=== PATIENT | male | born 1950 | race Caucasian/White ===

== ENCOUNTER 2016-04-27 13:02 | Observation (INO) | payer MEDICARE ==
[~2016-04-27] VITALS: Ht 165.1 cm; Wt 71.8 kg
[2016-04-27] VITALS (9 sets, daily range): BP systolic 104–178; BP diastolic 62–83; PULSE 43–58; RESP 13–20; O2SAT 93–98
[~2016-04-27 13:02] MED LIST: ALIR75PE SQ; ASCO100089 PO; ASPI325T32 PO; CLOP75TA28 PO; LOPE2TAB32 PO; METF1000 PO; METO-272 PO; NITR12SP5 TL; TAMS0.4C98 PO
--- NOTE | 2016-04-27 13:21 | ED.REPORT ---
HPI-Chest Pain 40 and Over Date of Service Apr 27, 2016 ED Provider: Dr. Willard Carcamo M.D. A 65 year old male with a history of STEMI, TIA, CAD, diabetes type 2, hypertension, and dyslipidemia presents to the ED with chest pressure onset 0700. The pain woke him up but did not radiate and was similar to his previous MO. The patient also reports nasal congestion, diaphoresis, mild abdominal pain , and shortness of breath. He took Nitro x1 at onset which resolved his pain initially but it returned when he went to cardiac rehab. The patient was admitted to the hospital for two nights on 03/29/16 with acute chest pain and possible TIA. Nursing Notes Stated Complaint: CHEST PAIN Chief Complaint: Chest Pain Nursing Notes Reviewed: Yes Allergies: Coded Allergies: Sulfa (Sulfonamide Antibiotics) (Verified Allergy, Intermediate, 03/28/16) Flu Like, High FEver, Joint pain, muscle pain. diazepam (Unverified Allergy, Intermediate, 03/29/16) Makes pt aggressive, per pt adhesive tape (Verified Allergy, Mild, Rash,Itching,, 03/28/16) lactose (Verified Allergy, Unknown, 03/28/16) Lactose Scheduled Alirocumab (Praluent Pen) 75 Mg/Ml Pen.injctr 75 MG SQ q14 days Ascorbic Acid (Vitamin C) 1,000 Mg Tab.chew 1,000 MG PO DAILY Aspirin (Aspirin) 325 Mg Tablet 325 MG PO DAILY Clopidogrel (Clopidogrel) 75 Mg Tablet 75 MG PO DAILY Metformin (Glucophage) 1,000 Mg Tablet 1,000 MG PO BID Metoprolol Succinate ER (Metoprolol Succinate ER) 50 Mg Tab.er.24h 50 MG PO HS Tamsulosin (Flomax) 0.4 Mg Capsule 0.4 MG PO DAILY Scheduled PRN Loperamide (Loperamide) 2 Mg Tablet 4 MG PO DAILY PRN PRN For Diarrhea or Loose Stool Nitroglycerin (Nitrolingual) 12 Gm [place] 12 GM TL 1-2 sprays PRN PRN For Chest Pain General Time Seen by MD: 13:20 Chief Complaint Chest pain Hx Obtained From: Patient Arrived By: Walk-in Sudden in Onset?: Yes Onset Occurred: 5 - 8 hours ago Symptom Duration: Since onset Location: : Chest left Quality: Painful Severity: Current: Moderate Severity: Maximum: Moderate Associated with: Reports: Diaphoresis, Shortness of Breath, Denies: Fever Relieved by: Nitroglycerin at home x 1 Context Related History: Reports: Acute coronary syndrome, Diabetes mellitus, Hypertension Recent Healthcare: Recent hospitalization Similar Sx Previous: Yes Past Medical History Past Medical History Notes: Past Medical History STEMI TIA CAD Type 2 Diabetes Atherosclerotic peripheral vascular disease GERD dyslipidemia hypertension hiatal hernia posttraumatic seizures Past Surgical History Stent placement x3 Retrograde left heart catheterization (02/2016) Balloon angioplasty to the distal left anterior descending (02/2016) Reports: Appendectomy, Tonsillectomy Family History Maternal grandfather disabled by MO Maternal uncle with fatal MO Mother without known heart disease Smoking History Former Smoker (Quit again March 06, 2016) Social History Patient stopped smoking for 22 years then restarted in 01/2016 Alcohol Use: "Social" Drug Use: Denies drug use Ambulatory Status Independent Review of Systems Constitutional: Denies: Fever Respiratory: Reports: Shortness of breath Cardiovascular: Reports: Chest pain GI: Reports: Abdominal pain Skin: Reports Diaphoresis Complete sys rev & neg: except as marked. Ears / Nose / Throat: Reports: Nasal congestion Physical Exam Initial Vital Signs Vital Signs (First) Date Time Temp Pulse Resp B/P Pulse Ox O2 Delivery O2 Flow Rate FiO2 04/27/16 13:05 36.9 58 20 161/83 97 Room Air Initial VS: Reviewed Head / Eyes: Atraumatic, Normocephalic ENT: Conjunctiva normal, No scleral icterus Neck: Supple, Full range of motion Skin: Warm, Dry, No cyanosis Neurologic: Alert, Oriented, Nonfocal Psychiatric: Mood/affect normal, Behavior normal, Normal thought content General/Constitutional: Awake, Alert, No acute distress Respiratory / Chest: Breath sounds NL, Breath sounds = bilat, No respiratory distress Cardiovascular: Heart rate NL, Regular rhythm, Heart sounds NL Abdomen: Soft, Non-tender Interpretation & Diagnostics Lab Results Interpretation Result Diagram: 04/27/16 1325 04/27/16 1325 Test 04/27/16 13:25 White Blood Count 11.1th/mm3 (3.8-10.1) Red Blood Count 4.85mil/mm3 (4.40-5.80) Hemoglobin 16.1g/dL (13.8-17.2) Hematocrit 47.6% (41.0-50.0) Mean Corpuscular Volume 98.1fL (81-100) Mean Corpuscular Hemoglobin 33.2pg (27.0-35.0) Mean Corpuscular Hemoglobin Concent 33.8% (32.0-37.0) Red Cell Distribution Width 13.1% (12.3-15.4) Platelet Count 282bil/L (150-400) Neutrophils (%) (Auto) 66.4% (40-74) Lymphocytes (%) (Auto) 20.7% (14-46) Monocytes (%) (Auto) 9.7% (4-12) Eosinophils (%) (Auto) 2.5% (0-5) Basophils (%) (Auto) 0.4% (0-3) Sodium Level 140mEq/L (134-144) Potassium Level 4.8mEq/L (3.5-5.2) Chloride Level 101mEq/L (97-108) Carbon Dioxide Level 22mmol/L (18-29) Blood Urea Nitrogen 18mg/dL (8-27) Creatinine 0.95mg/dL (0.76-1.27) Estimat Glomerular Filtration Rate 84mL/min (>59) Glucose Level 134mg/dL (60-99) Calcium Level 9.8mg/dL (8.5-10.1) Magnesium Level 2.1mg/dL (1.6-2.6) Total Bilirubin 0.3mg/dL (0.0-1.2) Aspartate Amino Transf (AST/SGOT) 16U/L (0-50) Alanine Aminotransferase (ALT/SGPT) 14U/L (0-44) Alkaline Phosphatase 80U/L (25-160) Troponin T < 0.010ug/L (0.0-0.011) Total Protein 7.6g/dL (6.4-8.4) Albumin 4.3g/dL (3.4-5.0) ECG Interpretation ECG Interpretation: Sinus rhythm rate 60 Probable left atrial enlargement Inferior infarct, age indeterminant No change from 03/29 Time: 13:40 Interpreted by: ED physician X-Ray Chest Interpretation Chest Xray Interpretation: IMPRESSION: No acute disease Dictated by: Gary Randhawa M.D. on 04/27/2016 at 14:13 View: Portable, 1 view Interpretation / Wet Read by: Interpret - Radiologist Re-Eval/Medical Decision Source of Hx: Old records Time of Eval: 14:16 Patient Status: Condition improved Re-Evaluation/Progress Note: Discussed with patient x-ray and lab results, diagnosis, and plan for admit. Patient agrees with plan for care and all questions were addressed. Consultation : Referral / Consult Name: Stephany Genao MD Consulted With: Hospitalist Call Returned at: 14:35 Residence Counselor: Agrees with eval, Agrees with plan, Accepts admit Counseled Regarding: Diagnosis, Lab results, Need for admission Discharge & Departure Primary Impression: Chest pain Disposition: ADMITTED TO HOSPITAL Discharge Condition All VS Reviewed: Yes Condition: Stable Referrals: Janina Boyer (PCP) Josribmariella Attestation Portions of this note were transcribed by Dotty Kyle. I, Dr. Carcamo, personally performed the history, physical exam, and medical decision-making; I reviewed and confirmed the accuracy of the information in the transcribed note. Signed by: Brady Coelho, 04/27/2016, 14:59 copies to: Janina Boyer Kirk H MD Apr 27, 2016 13:21 DOTTY KYLE Apr 27, 2016 13:33
[2016-04-27] MEDS ORDERED: Heparin 25K Unit/500mL 0.45 NS 25,000 UNIT in IV Premix 1 EACH IV SCH ×2 (13:30→21:25)
[2016-04-27] MEDS ORDERED: Nitroglycerin 2% 1 Gm Ointment TOPICAL ONE ×2 (13:30→22:40)
[2016-04-27] MEDS ORDERED: MeTOProlol 1 mg/mL 5 mL Inj IVPUSH PRN (13:30)
[2016-04-27] MEDS ORDERED: Heparin 5,000 Unit/mL Inj IVPUSH PRN ×2 (13:30→21:25)
[2016-04-27 13:41] LABS: BASOPHILS % (AUTO) 0.4 % (0-3); EOSINOPHILS % (AUTO) 2.5 % (0-5); MONOCYTES % (AUTO) 9.7 % (4-12); Mean Corpuscular Hemoglobin 33.2 pg (27.0-35.0); Mean Corpuscular Volume 98.1 fL (81-100); NEUTROPHILS % (AUTO) 66.4 % (40-74); Platelet Count 282 bil/L (150-400)
[2016-04-27 14:11] LABS: TROPONIN T < 0.010 ug/L (0.0-0.011)
[2016-04-27 14:12] LABS: Magnesium 2.1 mg/dL (1.6-2.6)
--- NOTE | 2016-04-27 14:14 | DRSVH ---
PROCEDURE: X-RAY CHEST ONE VIEW, PORTABLE ([id number]) INDICATIONS: chest pain TECHNIQUE: One view of the chest was acquired. COMPARISON: [facility], CR, XR CHEST 1VW (PORTABLE), 03/28/2016, 20:11. FINDINGS: Surgical changes and devices: None. Lungs and pleura: No pleural effusions or pneumothorax. Lungs are clear. Mediastinum: Mediastinal contours appear normal. Heart size is normal. Bones and chest wall: No suspicious bony lesions. Overlying soft tissues appear unremarkable. IMPRESSION: No acute disease Dictated by: Gary Randhawa M.D. on 04/27/2016 at 14:13 Approved by: Gary Randhawa M.D. on 04/27/2016 at 14:13
[2016-04-27] MEDS ORDERED: Ondansetron 2 mg/mL 2 mL Inj IVPUSH PRN (15:10)
[2016-04-27] MEDS ORDERED: Alum-Mag Hydrox-Simeth 30 mL Suspension PO PRN (15:10)
--- NOTE | 2016-04-27 15:20 | PCM.HPMED ---
Subjective Date of Service Apr 27, 2016 Primary Provider: Admitting Physician: Stephany Genao MD Primary Care Physician: Janina Boyer Attending Physician: Stephany Genao MD Chief Complaint: [facility] History of present illness 65-year-old male, presented 2015 with acute on chronic angina, treated with LAD distal balloon angioplasties without stent, re- presented 2015 with abdominal pain/anginal equivalent during exertion self-limiting no better with nitroglycerin with, CT chest/abdomen without acute findings and anterior ST changes, evaluated by cardiology at that time recommended follow-up with primary printer's assistant Jose and consideration for isosorbide in the future. His [facility] appt is pending. TOday, He woke up with epigastric abdominal/ midsternal pressure, mildly improved w/ nitro, proceeded to go to his cardiac rehab, pressure worse, walked to ER instaed. no acid reflux/vomiting/spicy food last night. diarrhea is due to IBS. prior trigylcerides have been in the 500s. no EGD since hiatal hernia repair 20 years ago. In the ER, 178/68, 57, chest pain improved with nitroglycerin 3, then with morphine, metoprolol administered. heparin gtt started. Ongoing abdominal and chronic right lower back pain. no better w/ maalox Review of Systems - none of the following - F/C/sick contact / DAMON / lightheaded / dizziness / sob / cough / cp / / bleeding/bruising / leg swelling / change in voiding / rash Allergies to statins FAMILY HX pancreatitis w/o EtOH SOCIAL HX former smoker, social EtOH MEDICATIONS Scheduled Alirocumab (Praluent Pen) 75 Mg/Ml Pen.injctr 75 MG SQ q14 days Ascorbic Acid (Vitamin C) 1,000 Mg Tab.chew 1,000 MG PO DAILY Aspirin (Aspirin) 325 Mg Tablet 325 MG PO DAILY Clopidogrel (Clopidogrel) 75 Mg Tablet 75 MG PO DAILY Metformin (Glucophage) 1,000 Mg Tablet 1,000 MG PO BID Metoprolol Succinate ER (Metoprolol Succinate ER) 50 Mg Tab.er.24h 50 MG PO HS Tamsulosin (Flomax) 0.4 Mg Capsule 0.4 MG PO DAILY Scheduled PRN Loperamide (Loperamide) 2 Mg Tablet 4 MG PO DAILY PRN PRN For Diarrhea or Loose Stool Nitroglycerin (Nitrolingual) 12 Gm [place] 12 GM TL 1-2 sprays PRN PRN For Chest Pain Past Medical/Surgical HX Diabetes mellitus2 02/2016 A1c 7.2 GERD/hiatal hernia - repaired 20 years ago recurrence based on recent imaging studies/ small ventral hernia / radiographic chronic pancreatitis/radiographic liver fatty infiltration Left lower lobe lung nodules, recommendation for follow-up CT CAD/STEMI stenting/Chronic angina Echo 03/08/16 EF 75-80%, small area of akinesis at tip of inferior apex, mild-mod RV dilation, severe apical RV hypokinesis. Hypertension /Dyslipidemia- 03/07/2016 trig 203, LDL 61 HDL 36 /TIAs suspected- declined MRIs in past Posttraumatic Seizures, petit mal, migraines QUETA/CPAP BPH L4-L5 ruptured Appendectomy/eye surgery/tonsillectomy/left finger operation Polymorphic light reaction Allergies Coded Allergies: Sulfa (Sulfonamide Antibiotics) (Verified Allergy, Intermediate, 03/28/16) Flu Like, High FEver, Joint pain, muscle pain. diazepam (Unverified Allergy, Intermediate, 03/29/16) Makes pt aggressive, per pt adhesive tape (Verified Allergy, Mild, Rash,Itching,, 03/28/16) lactose (Verified Allergy, Unknown, 03/28/16) Lactose Rzsfqyq-Orq-Zfv Reductase Inhibitor (Verified Adverse Reaction, Severe, muscle/joint pain, 04/27/16) PMH Social History Hx Alcohol Use: Yes (1 q 6 mnths) Hx Substance Use: No Hx Tobacco Use: Yes Smoking Status: Former Smoker (Quit again March 06, 2016) Exam Vital Signs Vital Sign - Last Date Time Temp Pulse Resp B/P Pulse Ox O2 Delivery O2 Flow Rate FiO2 04/27/16 13:15 57 13 178/68 97 Room Air 04/27/16 13:05 36.9 Lab and Diagnostics Labs Exam on admission NAD A and O x 3 mood affect WNL NC/AT no icterus no injected eyes EOMI PERRL /no pharyngeal lesions/ no oral lesions / hearing intact Supple neck CTAB equal chest rise / no accessory muscle use / speaks in full sentences / no rrw RRR S1 S2 / no mrg / 2+ radial pulses Soft nd + BS no hepatosplenomegaly No edema no cyanosis no ecchymosis of lower extremities No rash / no jaundice RUBIO no tenderness to chest palpation moderate tenderness to epigastric palpation and upper abdominal palpation EKG 60SR flipped T inferior leads and right precordial leads LFT normal Troponin negative at 2 PM Chest x-ray negative acute findings CT CAP 03/28/2016 1. No aortic aneurysm or dissection. 2. Left lower lobe lung nodules. Recommend CT followup (please see below for recommendation). 3. Hepatic steatosis. 4. There is increased enhancement of the gallbladder wall. No gallstones. If there is clinical suspicion for gallbladder pathology, ultrasound is suggested for further evaluation. 5. Punctate calcifications in pancreas likely secondary to chronic pancreatitis. 6. A 1.9 cm left adrenal nodule. 7. A small hiatal hernia and a tiny fat containing ventral hernia. Result Diagram: 04/27/16 1325 04/27/16 1325 Assessment & Plan Active issues and reason for admission Recurrent chest/abdominal pain, chronic angina, last cardiac catheterization consistent with distal LAD balloon angioplasties in February 2016, admitted for ACS evaluation, history of acid reflux/hiatal hernia. -- Serial troponin, hold heparin drip - discussed w/ printer's assistant unless trop rises, continue his monoclonal antibody, pending bnp Radiographic chronic pancreatitis w/o gallstones 02/2016, prior transaminits 2015 and 03/2016, consider gastroenteritis though lacking vomiting, diarrhea attributed to IBS -- Pending lipase --NPO / IVF --stool cx pending then resume home loperamide Elevated TSH 2015 admission, pending repeat with T4 Chronic issues known prior to admission, present on admission LLL nodules 02/2016 Diabetes mellitus2 02/2016 A1c 7.2 GERD/hiatal hernia CAD/STEMI RCA stent/ Hypertension /Dyslipidemia/TIA suspected Posttraumatic Seizures, petit mal, migraines QUETA/CPAP BPH L4-L5 ruptured Diet NPO DVT prophylaxis hold heparin gtt, ambulatory Code full Disposition OBS status Assessment and plan were discussed with patient. Stephany Genao MD Apr 27, 2016 15:20
[2016-04-27] MEDS ORDERED: TERB250T4 PO (15:56)
--- NOTE | 2016-04-27 16:22 | NUR ---
Admit nurse: Pt declines flu shot, med rec completed, allergy sticker in place. Admit completed, heparin gtt stopped per hospitalist orders. Pt to remain NPO.
[2016-04-27] MEDS ORDERED: 0.9% Sodium Chloride 1,000 ML IV SCH (17:14)
--- NOTE | 2016-04-27 18:07 | NUR ---
admit pt arrived on unit from ED SL, RA complaining of 4/10 chest pressure more than pain but did not want anymore morphine.Nitro patch on right chest placed in ER. Pt is a&oX3. per tele SB 48-52 all other vs wnl. BG 94. PT was placed on NPO.
[2016-04-27 20:06] LABS: Creatine Kinase 29 U/L (21-232)
[2016-04-27 20:11] LABS: TROPONIN T < 0.010 ug/L (0.0-0.011)
[2016-04-27] MEDS: MeTOProlol XL 50 mg ER24 Tablet PO SCH (21:00)
[2016-04-27] MEDS ORDERED: Heparin 5,000 Unit/mL Inj IVPUSH ONE (21:25)
--- NOTE | 2016-04-27 22:06 | NUR ---
PT TO CT Pr left [facility] 3006 via hospital bed to CT @ 2205. quality assurance technician notified. Pt on 2L oxygen w/ portable tank. Pt saline locked.
--- NOTE | 2016-04-27 22:08 | NUR ---
CHEST PAIN, HEPARIN GTT Pt has had c/o continual chest pain, "4" out of 10 tolerable. Pt later c/o increased chest pain. EKG ordered. BP elevated, pulse bradycardic 40-50s. MD notified. MD reordered heparin gtt, and to Nitro tab and IV morphine. Nitro tab given, pt states no change, IV morphine 2 mg administered. Pt appeared comfortable for a few minutes, but c/o chest pain "8". Second dose of IV morphine 2mg administered. CT ordered, pt to be saline locked, heparin gtt not started yet. Heparin IV bolus of 5000 units has been given. MD came to see pt. Pt in CT currently. MD ordered to have pt transferred to second floor.
[2016-04-27] MEDS ORDERED: 0.9% Sodium Chloride 500 ML IV PRN (22:40)
[2016-04-27 23:28] LABS: APPEARANCE,URINE CLEAR (CLEAR,HAZY); COLOR,URINE YELLOW (YELLOW); OCCULT BLOOD,URINE NEGATIVE (NEGATIVE); PH,URINE 5.5 (5.0-8.0); UROBILINOGEN,URINE NORMAL (NORMAL)
[2016-04-27] MEDS: 0.9% Sodium Chloride 1,000 ML IV SCH (23:30)
--- NOTE | 2016-04-27 23:49 | NUR ---
PT TRANSFERRED TO ROOM [address] completed, pt taken to Room 2021 approx 2215. [facility] [place] brought pts medications from [facility] and pt belongings from Room 3006 to second floor. Report given to HARIKA Wagner.
[2016-04-28] VITALS (10 sets, daily range): BP systolic 106–182; BP diastolic 65–96; PULSE 40–56; RESP 16–18; O2SAT 94–96
[2016-04-28] MEDS ORDERED: Nitroglycerin 50 mg/250 mL D5W 50,000 MCG in IV Premix 1 EACH IV SCH (00:30)
[2016-04-28] MEDS: Sodium Chloride LOK Flush 10 mL Syringe IVFLUSH SCH ×3 (00:30→18:02)
[2016-04-28] MEDS: Pantoprazole 4 mg/mL 10 mL Inj IVPUSH SCH ×3 (02:19→18:00)
--- NOTE | 2016-04-28 04:07 | NUR ---
P) Chest pain Pt. c/o chest pain /, state he thinks it is a problem with his LAD as the symptoms are so similar. Lungs with slightly coarse breath sounds and scattered crackles in bases. Abdomen tender to very light palpation, peripheral pulses strong. Cardiac rhythm bradycardic in the 40's with some PVC's, no acute changes noted. I) Started nitro gtt. at 5mcg/min. , pain reduced to 3/10 per pt. after consideration, he still requested a dose of morphine, also requested to speak with Dr. Genao but it was long after her shift and she did not respond to page. Morphine 2mg given IV. Meds per 's orders and close monitoring. E) Pt. appears pleased with attention and had multiple requests for information as to what we were doing and why, made a point of commenting that he always requested a copy of his chart after any hospital visit. On recheck after morphine pt. appeared to be sleeping. Of note I spent over an hour with pt. initially reponding to his questions and concerns. Addendum: 04/28/16 at 0429 by ROLANDO PAZ RN Recommended cough and deep breathing for pulmonary hygiene, pt. stated his chest pain increased with deep breaths so he would not be doing that. Advised pt. of risks of pneumonia while on bedrest, pt. was unconcerned.
--- NOTE | 2016-04-28 06:13 | NUR ---
P) Chest pain Pt. states chest pain is "different", now a 1-2 out of 10, mild headache, declined to have nitro gtt. turned up, current rate 10mcg/min. I) Cont. to monitor. E) Was sleeping, currently resting quietly with eyes closed.
[2016-04-28 07:00] LABS: BASOPHILS % (AUTO) 0.6 % (0-3); EOSINOPHILS % (AUTO) 2.9 % (0-5); Mean Corpuscular Hemoglobin 32.7 pg (27.0-35.0); Mean Corpuscular Volume 98.3 fL (81-100); NEUTROPHILS % (AUTO) 57.5 % (40-74); Platelet Count 238 bil/L (150-400)
[2016-04-28 07:33] LABS: Creatine Kinase 30 U/L (21-232)
[2016-04-28 07:34] LABS: TROPONIN T < 0.010 ug/L (0.0-0.011)
[2016-04-28 08:08] LABS: Free Thyroxine Index 2.6 (1.2-4.9); Thyroxine (T4) 8.3 ug/dL (4.5-12.0)
[2016-04-28] MEDS: 0.9% Sodium Chloride 1,000 ML IV SCH ×2 (08:22→18:20)
[2016-04-28] MEDS ORDERED: Nitroglycerin 2% 1 Gm Ointment TOPICAL SCH (08:30)
--- NOTE | 2016-04-28 09:12 | DRSVH ---
PROCEDURE: CT ANGIO CHEST PULMONARY EMBOLISM ([id number]) INDICATIONS: chest pain TECHNIQUE: After the administration of intravenous contrast, 2 mm thick sections acquired from the pulmonary api danyell to the posterior costophrenic angles. 3-dimensional maximum intensity projection (MIP) coronal a nd sagittal reformats were then acquired through the thorax. For radiation dose reduction, the follo wing was used: automated exposure control, adjustment of mA and/or kV according to patient size. COMPARISON: [facility], CT, CT ANGIO CHEST ABD, 03/28/2016, 22:54. [facility], CT, CT ANGIO CHEST PE, 03/06/2016, 22:07. FINDINGS: Image quality: Excellent. Pulmonary arteries: Pulmonary arteries are normal in size, and demonstrate no intraluminal filling d efects to suggest central pulmonary embolism. Lungs and pleura: There is mild dependent atelectasis bilaterally. Mild centrilobular emphysematous changes are demonstrated. There are a few scattered small left peripheral nodules redemonstrated in cluding pleural based left lingula nodule measuring 4 mm on series 5 image 39, a pleural-based left l ower lobe nodule measuring 4 mm on image 43, and a subpleural indistinct ground glass nodular opacity in the left lower lobe measuring approximately 6 mm on image 31. The lingular nodule appears minima lly increased in size compared to the prior study of 03/06/16. No pleural effusions or pneumothorax. Central and peripheral airways are patent. Mediastinum: Heart size is normal, without pericardial effusion. There is coronary arterial vascula r calcification. No mediastinal or hilar adenopathy. Thoracic aorta is normal in caliber and enhanc ement without intimal flaps to suggest dissection. There are postsurgical changes consistent with pr ior Brody fundoplication. Bones and chest wall: No suspicious bony lesions. Ribs and thoracic spine appear intact throughout. Thyroid gland is partially visualized without discrete nodules identified. No axillary or supracla vicular adenopathy. Abdomen: Visualized upper abdomen demonstrates segmental wall thickening of the visualized 1st and 2 nd portions of the duodenum with mucosal enhancement and mild fat stranding. Findings are consistent with nonspecific duodenitis. There is hypoattenuation of the liver consistent with fatty infiltrati on with relative sparing along the gallbladder fossa. Colonic diverticulosis is noted. A left parap elvic renal cyst is partially visualized. There is thickening of the adrenal glands without a discre te nodule. IMPRESSION: 1. No evidence of pulmonary embolism or aortic dissection. 2. Segmental wall thickening of the visualized proximal duodenum consistent with a nonspecific duode nitis. 3. Postsurgical changes consistent with prior Brody fundoplication. 4. Small left pulmonary nodules redemonstrated with possible slight increase in size of a small left lingular nodule measuring up to 4 mm. Recommend followup in 6 months to demonstrate stability if cl inically indicated. Dictated by: Oscar Ceja M.D. on 04/28/2016 at 9:08 Approved by: Oscar Ceja M.D. on 04/28/2016 at 9:08
--- NOTE | 2016-04-28 11:05 | NUR ---
Observation information provided and explained. Pt very angry at being observation status, he is aware that we will monitor his progress, test results, documentation, that status could change to IP but at this time, with existing documentation, he is observation status.
--- NOTE | 2016-04-28 13:31 | CONS ---
[address] [address] CONSULTATION REPORT PATIENT: LINDA MELENDREZ : 1950 MR#: [id number] ADMIT: 04/27/2016 JOB ID: [id number] DATE OF SERVICE: 04/28/2016 CHIEF COMPLAINT: I was asked by Dr. Thao of the hospital team to consult on this patient given chest pain. HISTORY OF PRESENT ILLNESS: The patient is a 65-year-old man with known coronary disease. He has a history of chest discomfort for which he presented March 06, [address] elevations. This pain was in the middle of the chest and radiated to his left neck, left arm, and shoulder. [facility] was taken to [facility] where balloon angioplasty was performed on the distal left anterior descending artery. This resolved his discomfort. He came back to the hospital in March, where I saw him in consultation. At that time he described the symptoms as the worst heartburn of his life in a more epigastric location. Nitroglycerin did not help. He went to the ED. During that hospital admission he ruled out by serial cardiac markers and felt well the next day to go home. His EKG at that time showed resolving EKG changes of his prior myocardial infarction. Around mid week the patient started having some of this discomfort. Nitroglycerin did not necessarily make it resolve, however it did resolve spontaneously. This occurred at rest. This discomfort did not get worse with activity or movement. The pain ultimately resolved. He had another episode, which again resolved spontaneously. On Saturday he was going to go to cardiac rehab and he was sitting, waiting for the appointment, when he suddenly developed again a very strong pressure in the chest or midepigastric area. This was quite severe and therefore he went to the ED. In the ED he had no acute EKG changes. The EKG shows flipped T-waves in the anterior leads possibly related to his resolved anterior CO. He was given nitroglycerin without significant benefit. He has now ruled out by serial cardiac markers. He continues to have intermittent symptoms which are worse at times. He tells me the symptoms always occur at rest. They never seem to worsen with exertion. They do not radiate to his neck, jaw, or back. He says that he got a little bit worse chest pain when they came in to talk to him about his observation status today, and that his insurance would not pay for the visit, however that has improved as well. He says he does not feel well enough to go home and he is very concerned. PAST MEDICAL HISTORY/PROBLEM LIST: 1. Coronary disease with an admission in February for an anterior CO with the treatment by balloon angioplasty of the distal left anterior descending artery. He does have some other coronary disease including a subtotal obtuse marginal branch, but no other large vessel obstructive disease. 2. History of diabetes. 3. GERD. 4. Dyslipidemia. 5. Hypertension. 6. History of hiatal hernia. HOME MEDICATIONS: included Plavix, metformin, metoprolol. ALLERGIES: SULFA, ADHESIVE TAPE, DIAZEPAM, LACTOSE. SOCIAL HISTORY: History of tobacco use. No significant alcohol use. FAMILY HISTORY: No early coronary disease. CURRENT MEDICATIONS: Include a heparin drip, Lamisil 250 daily, Flomax 0.4 mg a day, Plavix 75 daily, aspirin 325 daily, pantoprazole 40 b.i.d., metoprolol succinate 50 mg q.h.s. REVIEW OF SYSTEMS: Constitutional: No fevers, chills, night sweats, or weight loss. GI: As noted epigastric discomfort, right upper quadrant discomfort, also some history of GERD. No blood in his stool. : No dysuria or hematuria. Musculoskeletal: No joint pain or swelling. Heme: No easy bruising or bleeding. Derm: No rashes or skin breakdown. Endocrine: No heat or cold intolerance. Neuro: No chronic headaches. No numbness, tingling, or weakness. Ophtho: No vision changes. ENT: No difficultly swallowing. No sore throat. Psych: No acute issues. Cardiac: As per HPI. He also denies orthopnea, PND, lower extremity edema, palpitations, presyncope, or syncope. All other review of systems on a 12-point review of system is negative. PHYSICAL EXAMINATION: Blood pressure is 130/77. He is afebrile. Heart rate 46, sats are 94% on 2 L. Constitutional: In no acute distress. Speaking in full sentences, without apparent shortness of breath. Head and neck: Normocephalic, atraumatic. Vascular: No carotid bruits, 2+ distal pulses. Heart: Regular rate and rhythm. I do not appreciate murmurs, gallops, or rubs. Lungs: Clear to auscultation anteriorly. Back: No CVA tenderness to palpation. Abdomen: Soft, nondistended, but with tenderness with palpation in the right upper quadrant/epigastrium with some with some guarding. Extremities: Warm. No appreciable edema is noted, 2+ distal pulses. Skin: Without breakdown appreciated. Neurologic: Alert and oriented x3. Gait is not tested. Psych: Appropriate mood and affect. ENT: Mucous membranes moist. vision: grossly normal LABORATORY AND DIAGNOSTIC STUDIES: EKG shows sinus rhythm with a flipped T-waves anteriorly which may be part of the resolution of his anterior CO. LABORATORIES: Show white count 7.2, H and H 13.6 and 40.9, platelets of 238,000. Chemistry today shows sodium 140, potassium 0.3. Chloride and bicarb 105 and 27, respectively. BUN and creatinine 13 and 0.79. Troponins all negative. IMAGING: There is a CT angio that shows no evidence of PE. There is segmental wall thickening of the visualized proximal duodenum consistent with nonspecific duodenitis. Postsurgical changes consistent with prior Brody fundoplication. Some small left pulmonary nodules. Back in March he had a chest/abdomen CT which showed no aortic dissection or aneurysm, again left lobe lung nodules, hepatic steatosis, as well as enhancement of the gallbladder wall without any obvious gallstones appreciated, but suggested ultrasound at that time for further assessment. There was a small hiatal hernia and tiny fat-containing ventral hernia. IMPRESSION: The patient has a history known coronary artery disease. He has had intermittent episodes of discomfort. He was here back in March with perhaps similar symptoms which resolved spontaneously, again ruling out with negative troponins. Yesterday he got admitted with persistence of this pain which he says always occurs at rest, does not occur with activity, does not worsen with activity. He denies increased shortness of breath. He denies radiation of the discomfort to his arm, jaw, or neck. He has tenderness on palpation in the right upper quadrant epigastrium with some guarding. I do not necessarily appreciate rebound. PLAN/RECOMMENDATION: We can continue to observe him as a cardiac patient. However, given his admission about a month ago with some question of gallbladder pathology, I would get an abdominal ultrasound to look specifically at the right upper quadrant for any gallbladder pathology for any kind of Recinos's sign. He does have other reasons to have abdominal pain which could be intermittent including these findings of duodenitis as well as residual hiatal hernia. I would do this workup while he is in the hospital today and continue to observe him as a cardiac patient, and then once that workup is done if we cannot find any clear source for his discomfort we can consider stress testing or other alternative cardiac testing. One hour was spent speaking with an examining the patient as well as review old and new records. PRERNA
[2016-04-28] MEDS ORDERED: Isosorbide Mononitrate 30 mg ER24 Tablet PO ONE (15:40)
--- NOTE | 2016-04-28 15:43 | DRSVH ---
PROCEDURE: US ABDOMEN, LIMITED ([id number]) INDICATIONS: RUQ, mid epigastric discomfort TECHNIQUE: Real-time focused scanning was performed of the gallbladder, with image documentation. COMPARISON: None. FINDINGS: Limited evaluation of the gallbladder demonstrates no gallstones, gallbladder wall thickening, or per icholecystic fluid. There is a phrygian cap is incidentally noted. IMPRESSION: 1. No evidence of cholelithiasis or cholecystitis. Dictated by: Oscar Ceja M.D. on 04/28/2016 at 15:42 Approved by: Oscar Ceja M.D. on 04/28/2016 at 15:42
--- NOTE | 2016-04-28 17:45 | PCM.PNMED ---
Subjective Date of Service Apr 28, 2016 Subjective Patient is a 65-year-old male with past medical history of acute on chronic angina, multi-vessel Coronary artery disease, anterior WI treated with LAD distal balloon angioplasties without stent, DM type II, GERD, dyslipidemia, hypertriglyceridemia, hypertension, hiatal hernia s/p repair 20 years ago. Admitted for treatment of unstable chest pain at rest, acute on chronic abdominal pain. Today patient complains of chest pressure at rest located to his sternum described as deep cramping/pressure type pain, rated 0-2 at rest, increases 4/ 10 deep inspiration, pain does not radiate to neck, jaw, or back. He stated that he is very concerned about this pain and does not feel well enough to go home. ROS negative except as mentioned above. Exam Vital Signs Vital Sign - Last Date Time Temp Pulse Resp B/P Pulse Ox O2 Delivery O2 Flow Rate FiO2 04/28/16 06:12 47 04/28/16 05:30 36.5 18 110/65 96 Nasal Cannula 1.00 Intake and Output 04/27/16 04/27/16 04/28/16 Cumulative From/Thru 15:00 23:00 07:00 04/27/16 13:05 - 04/28/16 06:35 Intake Total 40 ml 808 ml 848 ml Output Total 0 ml 575 ml 575 ml Balance 40 ml 233 ml 273 ml Intake Oral 0 ml 0 ml 0 ml IV Total 40 ml 808 ml 848 ml Output Urine Total 0 ml 575 ml 575 ml # Bowel Movements 0 0 Exam General: Alert, Oriented X3, Cooperative, No Acute Distress Head: Normocephalic, atraumatic. External ears normal. Eyes: PERRLA, EOMI. Anicteric sclerae. Mouth: Mouth Normal, Mucous Membranes Moist/[place] Neck: Neck supple with full range of motion. No JVD Chest & Lungs: Clear to auscultation bilaterally with no crackles, wheezes, or rhonchi. Cardiovascular: Regular Rate/Rhythm, normal S1, Normal S2, No Murmurs/Rubs/ Gallops Abdomen: Mild tenderness to RUQ, Non-distended, No masses, Normoactive bowel tones, Soft, no ecchymoses Musculoskeletal: Normal Range of Motion Extremities: No cyanosis/clubbing/edema bilaterally, peripheral pules +2 in all extremities b/l Neurological: Grossly Neurologically Intact, normal speech, strength normal 4/ 4 in all extremities b/l, IVs and Medications Medications Alirocumab (Praluent Pen) 75 Mg/Ml Pen.injctr 75 MG SQ q14 days Ascorbic Acid (Vitamin C) 1,000 Mg Tab.chew 1,000 MG PO DAILY Aspirin (Aspirin) 325 Mg Tablet 325 MG PO DAILY Clopidogrel (Clopidogrel) 75 Mg Tablet 75 MG PO DAILY Metformin (Glucophage) 1,000 Mg Tablet 1,000 MG PO BID Metoprolol Succinate ER (Metoprolol Succinate ER) 50 Mg Tab.er.24h 50 MG PO HS Tamsulosin (Flomax) 0.4 Mg Capsule 0.4 MG PO DAILY Scheduled PRN Loperamide (Loperamide) 2 Mg Tablet 4 MG PO DAILY PRN PRN For Diarrhea or Loose Stool Nitroglycerin (Nitrolingual) 12 Gm Hooper 12 GM TL 1-2 sprays PRN PRN For Chest Pain Lab and Diagnostics Laboratory Tests Test 04/27/16 13:25 04/27/16 19:20 04/27/16 23:14 04/28/16 01:20 White Blood Count 11.1th/mm3 (3.8-10.1) Red Blood Count 4.85mil/mm3 (4.40-5.80) Hemoglobin 16.1g/dL (13.8-17.2) Hematocrit 47.6% (41.0-50.0) Mean Corpuscular Volume 98.1fL (81-100) Mean Corpuscular Hemoglobin 33.2pg (27.0-35.0) Mean Corpuscular Hemoglobin Concent 33.8% (32.0-37.0) Red Cell Distribution Width 13.1% (12.3-15.4) Platelet Count 282bil/L (150-400) Neutrophils (%) (Auto) 66.4% (40-74) Lymphocytes (%) (Auto) 20.7% (14-46) Monocytes (%) (Auto) 9.7% (4-12) Eosinophils (%) (Auto) 2.5% (0-5) Basophils (%) (Auto) 0.4% (0-3) Sodium Level 140mEq/L (134-144) Potassium Level 4.8mEq/L (3.5-5.2) Chloride Level 101mEq/L (97-108) Carbon Dioxide Level 22mmol/L (18-29) Blood Urea Nitrogen 18mg/dL (8-27) Creatinine 0.95mg/dL (0.76-1.27) Estimat Glomerular Filtration Rate 84mL/min (>59) Glucose Level 134mg/dL (60-99) Calcium Level 9.8mg/dL (8.5-10.1) Magnesium Level 2.1mg/dL (1.6-2.6) Total Bilirubin 0.3mg/dL (0.0-1.2) Aspartate Amino Transf (AST/SGOT) 16U/L (0-50) Alanine Aminotransferase (ALT/SGPT) 14U/L (0-44) Alkaline Phosphatase 80U/L (25-160) Troponin T < 0.010ug/L (0.0-0.011) < 0.010ug/L (0.0-0.011) Total Protein 7.6g/dL (6.4-8.4) Albumin 4.3g/dL (3.4-5.0) Lipase 29U/L (13-60) Activated Partial Thromboplast Time 24.9sec (22.8-33.0) Total Creatine Kinase 29U/L (21-232) Creatine Kinase MB 1.0ng/mL (0.0-10.4) Creatine Kinase MB % 3.4% (0.0-5.0) Pro-B-Type Natriuretic Peptide 241.2pg/mL (0-376) Urine Color Yellow (YELLOW) Urine Appearance Clear (CLEAR,HAZY) Urine pH 5.5 (5.0-8.0) Urine Specific [place] 1.020 (1.003-1.035) Urine Protein Negativemg/dL (NEG,TRACE) Urine Glucose (UA) Negativemg/dL (NEGATIVE) Urine Ketones Negativemg/dL (NEGATIVE) Urine Occult Blood Negative (NEGATIVE) Urine Nitrite Negative (NEGATIVE) Urine Bilirubin Negative (NEGATIVE) Urine Urobilinogen Normalmg/dL (NORMAL) Urine Leukocyte Esterase Negative (NEGATIVE) Urine RBC 0-2/hpf (0-2) Urine WBC 0-5/hpf (0-5) Urine Epithelial Cells Occasional/hpf (NONE-MOD) Urine Crystals None seen (NONE SEEN) Urine Bacteria None/hpf (NONE-FEW) Urine Hyaline Casts None/lpf (NONE) Urine Granular Casts None seen (NONE SEEN) Urine Waxy Casts None seen (NONE SEEN) Urine Red Blood Cell Casts None seen (NONE SEEN) Urine White Blood Cell Casts None seen (NONE SEEN) Urine Mucus None seen (None Seen) Urine Trichomonas None seen (NONE SEEN) Urine Yeast None (NONE SEEN) Urine Culture Reflexed Not indicated Hold Blue Top Tube Received (Received) Test 04/28/16 06:45 White Blood Count 7.2th/mm3 (3.8-10.1) Red Blood Count 4.16mil/mm3 (4.40-5.80) Hemoglobin 13.6g/dL (13.8-17.2) Hematocrit 40.9% (41.0-50.0) Mean Corpuscular Volume 98.3fL (81-100) Mean Corpuscular Hemoglobin 32.7pg (27.0-35.0) Mean Corpuscular Hemoglobin Concent 33.3% (32.0-37.0) Red Cell Distribution Width 12.9% (12.3-15.4) Platelet Count 238bil/L (150-400) Neutrophils (%) (Auto) 57.5% (40-74) Lymphocytes (%) (Auto) 29.9% (14-46) Monocytes (%) (Auto) 9.0% (4-12) Eosinophils (%) (Auto) 2.9% (0-5) Basophils (%) (Auto) 0.6% (0-3) Result Diagram: 04/28/16 0645 04/27/16 1325 X-Rays, CTs and MRIs X-RAY CHEST ONE VIEW IMPRESSION: No acute disease Dictated by: Gary Randhawa M.D. on 04/27/2016 at 14:13 Approved by: Gary Randhawa M.D. on 04/27/2016 at 14:13 CT ANGIO CHEST PULMONARY EMBOLISM IMPRESSION: 1. No evidence of pulmonary embolism or aortic dissection. 2. Segmental wall thickening of the visualized proximal duodenum consistent with a nonspecific duodenitis. 3. Postsurgical changes consistent with prior Brody fundoplication. 4. Small left pulmonary nodules remonstrated with possible slight increase in size of a small left lingular nodule measuring up to 4 mm. Recommend followup in 6 months to demonstrate stability if clinically indicated. Dictated by: Oscar Ceja M.D. on 04/28/2016 at 9:08 Approved by: Oscar Ceja M.D. on 04/28/2016 at 9:08 US ABDOMEN, IMPRESSION: 1. No evidence of cholelithiasis or cholecystitis. Dictated by: Oscar Ceja M.D. on 04/28/2016 at 15:42 Approved by: Oscar Ceja M.D. on 04/28/2016 at 15:42 Assessment & Plan Patient is a 65-year-old male with past medical history of acute on chronic angina, multi-vessel Coronary artery disease, anterior WI treated with LAD distal balloon angioplasties without stent, DM type II, GERD, dyslipidemia, hypertriglyceridemia, hypertension, hiatal hernia s/p repair 20 years ago. Admitted for treatment of unstable chest pain at rest, acute on chronic abdominal pain. 1. Acute on chronic Abdominal pain, present on admission, active - Radiographic chronic pancreatitis w/o gallstones 02/2016, prior transaminitis 02/2016 and 03/2016, consider pancreatitis, gastroenteritis, - lipase 29 - Elevated white count at admission 11.1 - Advance diet, Heart healthy limit carbs to 45 mg daily - stool cx pending then resume home loperamide - Abdominal ultrasound ordered, no evidence of cholecystitis, cholelithiasis 2. Unstable Angina, acute on chronic, improved - History of multi-vessel Coronary artery disease, anterior WI treated with LAD distal balloon angioplasties without stent, - Discontinue Nitroglycerin drip, switched to lsosorbide mononitrate 30 mg BID - PRN SL nitroglycerin, breakthrough chest pain - Troponin remain stable <0.010 - Continue Tele - Pharmacologic stress test ordered, Discussed diagnostic results with patient and option to r/o ischemic disease with stress test, patient agreed to pharmacologic stress test, patient NPO at midnight. - Cardiology following appreciate their input and expertise Chronic issues known prior to admission, present on admission 3.LLL nodules 02/2016, Follow up CT in 6 months 4.Diabetes mellitus2 02/2016 A1c 7.2 5.GERD/hiatal hernia 6.CAD/STEMI RCA stent/ 7.Hypertension /Dyslipidemia/TIA suspected 8.Posttraumatic Seizures, petit mal, migraines 9.QUETA/CPAP 10.BPH 11.L4-L5 ruptured Diet Full DVT prophylaxis hold heparin gtt, ambulatory Code full Disposition: Patient is admitted under observation status with expected length of stay less than 2 midnights due to severity of presenting symptoms, risk of adverse event, and complexity of treatment plan. Assessment and plan were discussed with patient. Attending Statement The patient was seen and examined together with Dr. Grande on 04/28/2016 and I agree with the history, exam and plan as outlined in the note above. . ERIC GRANDE DO Apr 28, 2016 07:33 Alex Mauricio MD Apr 29, 2016 08:05
--- NOTE | 2016-04-28 19:21 | NUR ---
CHEST PAIN Patient continues to have CP, although has become intermittent versus constant. Troponins continue to be negative, so Heparin gtt discontinued. Patient transitioned to PO Isosorbide Mononitrate, and IV Nitro gtt discontinued. Patient requests to have Nitro tablets at the bedside. Explained that if he has CP, to put his call light on, and the nurse can take vitals and administer Nitro PRN, but medications are not to be left at the bedside per hospital policy. He stated his unhappiness with this policy, but did not push the subject further. Will continue to monitor vitals and CP.
[2016-04-28] MEDS: MeTOProlol XL 50 mg ER24 Tablet PO SCH (21:00)
[2016-04-29] VITALS (8 sets, daily range): BP systolic 101–158; BP diastolic 61–89; PULSE 45–76; RESP 16–20; O2SAT 93–96
[2016-04-29] MEDS: Sodium Chloride LOK Flush 10 mL Syringe IVFLUSH SCH ×3 (01:00→16:37)
[2016-04-29] MEDS: 0.9% Sodium Chloride 1,000 ML IV SCH ×2 (04:20→14:20)
[2016-04-29 05:58] LABS: Mean Corpuscular Hemoglobin 32.9 pg (27.0-35.0); Mean Corpuscular Volume 98.3 fL (81-100)
[2016-04-29] MEDS: Isosorbide Mononitrate 30 mg ER24 Tablet PO SCH (07:30)
[2016-04-29] MEDS: Pantoprazole 4 mg/mL 10 mL Inj IVPUSH SCH ×2 (09:36→16:37)
--- NOTE | 2016-04-29 17:58 | PCM.PNMED ---
Subjective Date of Service Apr 29, 2016 Subjective Tomas Deleon is a 65-year-old male with past medical history of acute on chronic angina, multi-vessel coronary artery disease, anterior PA treated with LAD distal balloon angioplasties without stent, DM type II, GERD, dyslipidemia, hypertriglyceridemia, hypertension, hiatal hernia s/p repair 20 years ago. Admitted for treatment of unstable angina. Hospital day 3. Overnight: No acute events. Patient noted mild chest pain. Today: The patient complains that isosorbide has given him a terrible headache and would like to not take it and see if his headache resolves. He notes very mild twinges of chest pain but otherwise feels well and denies any shortness of breath or orthopnea. ROS is negative except as noted above. Exam Vital Signs Vital Sign - Last Date Time Temp Pulse Resp B/P Pulse Ox O2 Delivery O2 Flow Rate FiO2 04/29/16 12:05 36.8 76 20 131/74 96 Room Air 04/28/16 08:10 2.00 Intake and Output 04/28/16 04/28/16 04/29/16 Cumulative From/Thru 15:00 23:00 07:00 04/27/16 13:05 - 04/29/16 06:45 Intake Total 1644 ml 240 ml 2732 ml Output Total 875 ml 400 ml 1850 ml Balance 769 ml -160 ml 882 ml Intake Oral 800 ml 240 ml 1040 ml IV Total 844 ml 1692 ml Output Urine Total 875 ml 400 ml 1850 ml # Bowel Movements 0 Exam General: Alert, Oriented X3, Cooperative, No Acute Distress Head: Normocephalic, atraumatic. External ears normal. Eyes: PERRLA, EOMI. Anicteric sclerae. Mouth: Mouth Normal, Mucous Membranes Moist/[place] Neck: Neck supple with full range of motion. No JVD Chest & Lungs: Clear to auscultation bilaterally with no crackles, wheezes, or rhonchi. Cardiovascular: Regular Rate/Rhythm, normal S1, Normal S2, No Murmurs/Rubs/ Gallops Abdomen: Mild tenderness to RUQ, Non-distended, No masses, Normoactive bowel tones, Soft, no ecchymoses Musculoskeletal: Normal Range of Motion Extremities: No cyanosis/clubbing/edema bilaterally, peripheral pules +2 in all extremities b/l Neurological: Grossly Neurologically Intact, normal speech, strength normal 4/ 4 in all extremities b/l, IVs and Medications Medications Reviewed: Medications were reviewed in detail Lab and Diagnostics Result Diagram: 04/29/16 0949 04/29/16 0505 X-Rays, CTs and MRIs X-RAY CHEST ONE VIEW IMPRESSION: No acute disease Dictated by: Gary Randhawa M.D. on 04/27/2016 at 14:13 CT ANGIO CHEST PULMONARY EMBOLISM IMPRESSION: 1. No evidence of pulmonary embolism or aortic dissection. 2. Segmental wall thickening of the visualized proximal duodenum consistent with a nonspecific duodenitis. 3. Postsurgical changes consistent with prior Brody fundoplication. 4. Small left pulmonary nodules remonstrated with possible slight increase in size of a small left lingular nodule measuring up to 4 mm. Recommend followup in 6 months to demonstrate stability if clinically indicated. Dictated by: Oscar Ceja M.D. on 04/28/2016 at 9:08 US ABDOMEN IMPRESSION: 1. No evidence of cholelithiasis or cholecystitis. Dictated by: Oscar Ceja M.D. on 04/28/2016 at 15:42 Assessment & Plan Tomas Deleon is a 65-year-old male with past medical history of acute on chronic angina, multi-vessel coronary artery disease, anterior PA treated with LAD distal balloon angioplasties without stent, DM type II, GERD, dyslipidemia, hypertriglyceridemia, hypertension, hiatal hernia s/p repair 20 years ago. Admitted for treatment of unstable angina. Hospital day 3. 1. Unstable angina, acute on chronic, improved - History of multi-vessel coronary artery disease, anterior PA treated with LAD distal balloon angioplasties without stent - Continue lsosorbide mononitrate 30 mg BID, will give patient the option of isosorbide OR nitro patch on D/C - PRN SL nitroglycerin, breakthrough chest pain - Troponin remain stable <0.010 - Continue Tele - Pharmacologic stress test done, awaiting results at this time. - Cardiology following appreciate their input and expertise 2. Acute on chronic abdominal pain, present on admission, active - Radiographic chronic pancreatitis w/o gallstones 02/2016, prior transaminitis 02/2016 and 03/2016, consider pancreatitis, gastroenteritis, - Lipase 29 - Elevated white count at admission 11.1 - Advance diet, heart healthy limit carbs to 45 mg daily - stool cx pending then resume home loperamide - Abdominal ultrasound showing no evidence of cholecystitis, cholelithiasis Chronic issues known prior to admission, present on admission: 3.LLL nodules 02/2016 -Follow up CT in 6 months 4.Diabetes mellitus type 2, non-insulin using - In 02/2016 A1c 7.2 - Extensive education done by the team about life style changes - Low carb diet 5.GERD/hiatal hernia -Protonix PO Q day 6.CAD/STEMI RCA stent -Continue aspirin and clopidogrel -Will discuss starting statin with him 7.Hypertension -Continue metoprolol 8.Posttraumatic Seizures, petit mal, migraines -Not on antiepileptic normally 9.QUETA/CPAP -Continue nightly CPAP 10.BPH -Continue Flomax 11.L4-L5 ruptured Diet Full DVT prophylaxis subQ heparin Code full Disposition: Anticipate D/C tomorrow pending patient's stress test results and resolution of his chest pain. Attending Statement The patient was seen and examined together with Dr. Childress on 04/29/2016 and I agree with the history, exam and plan as outlined in the note above. . Renee Childress DO Apr 29, 2016 17:58 Alex Mauricio MD Apr 29, 2016 18:07
--- NOTE | 2016-04-29 19:09 | NUR ---
Stress Test.. Has declined to take his isosorbide today. States he wants to test not having it to see if this was the cause of his low grade headache. Has voiced no c/o chest pain and has been up amb in the halls and room and is ramakrishna activity well. Was taken to nuclear medicine for stress test today. Pt was given lunch before blood glucose could be done. Evening glucose was 193. Pt declined having it treated, stating it was to be expected as he had a late lunch and is not on his usual po diabetic meds.
[2016-04-29] MEDS: MeTOProlol XL 50 mg ER24 Tablet PO SCH (19:27)
[2016-04-29] MEDS: Heparin 5,000 Unit/mL Inj SUBQ SCH (19:33)
[2016-04-30 00:20] VITALS: PULSE 76
[2016-04-30] MEDS: 0.9% Sodium Chloride 1,000 ML IV SCH (00:20)
[2016-04-30] MEDS: Sodium Chloride LOK Flush 10 mL Syringe IVFLUSH SCH ×2 (01:13→08:34)
[2016-04-30 04:16] VITALS: BP 139/83; PULSE 52; RESP 16; O2SAT 95
[2016-04-30 05:05] LABS: BASOPHILS % (AUTO) 1.1 % (0-3); EOSINOPHILS % (AUTO) 5.3 % (0-5); MONOCYTES % (AUTO) 12.4 % (4-12); Mean Corpuscular Hemoglobin 33.1 pg (27.0-35.0); Mean Corpuscular Volume 97.2 fL (81-100); NEUTROPHILS % (AUTO) 52.5 % (40-74); Platelet Count 255 bil/L (150-400)
[2016-04-30] MEDS: Isosorbide Mononitrate 30 mg ER24 Tablet PO SCH (07:30)
[2016-04-30] MEDS ORDERED: Pantoprazole 20 mg ER24 Tablet PO SCH (07:30)
[2016-04-30 08:30] VITALS: BP 186/92; PULSE 50; RESP 16; O2SAT 95
[2016-04-30] MEDS: Heparin 5,000 Unit/mL Inj SUBQ SCH (08:37)
[2016-04-30 11:11] VITALS: PULSE 48
--- NOTE | 2016-04-30 11:12 | DRSVH ---
PROCEDURE: 2 DAY PHARMACOLOGICAL STRESS TEST Rest and pharmacological stress myocardial perfusion SPECT with gated imaging and ejection fraction RADIOPHARMACEUTICAL: 19.9 mCi Tc-99m tetrafosmin IV at rest and 21.5 mCi Tc-99m tetrafosmin IV at pea k effect of pharmacological stress. A [id number] was performed. INDICATIONS: 65 year-old male with history of diabetes, hyperlipidemia, hypertension, and coronary ar catrina disease status post prior myocardial infarct with stent placement presenting for evaluation of c hest pain. TECHNIQUE: Radiopharmaceutical was injected at peak stress test, and also at rest. SPECT images wer e obtained. SPECT myocardial perfusion images were displayed in short axis, horizontal long axis, an d vertical long axis views. Gated images were reviewed using [employer] software. COMPARISON: [facility], [place], [place] CARDIAC STRESS TEST PHARM, 11/09/2015, 8:26. CARDIAC STRESS: A pharmacologic stress test was performed under the supervision of an attending staff, using an infus ion of Lexiscan. Hemodynamic data: There is appropriate blood pressure and heart rate response to pharmacologic stres s. Symptoms: The patient reported chest discomfort of 1-2/10 which increased to 5/10 with Lexiscan and resolved at the end of the test back to baseline. Aminophylline: 100 mg IV. EKG: Baseline EKG demonstrates sinus rhythm with T-wave changes in the inferior and anterolateral henri ds. No definite findings of ischemia following pharmacologic stress. Occasional PVCs. FINDINGS: Raw data: There is good myocardial uptake of radiotracer. No significant motion artifacts. Left ventricle function: Gated images not obtained at rest due to irregular heart rate. Gated stres s images demonstrate normal left ventricular wall thickening. No segmental wall motion abnormalities . Left ventricle end diastolic volume is 48 mL. Left ventricle stress ejection fraction is 77%; nor mal range is above 45%. Myocardial perfusion: There is normal relative distribution of activity in the right and left ventri cular myocardium. There is a small perfusion deficit within the distal inferior wall on stress and r est images which nearly completely resolved on prone imaging likely reflecting soft tissue attenuatio n artifact. IMPRESSION: 1. Normal myocardial perfusion images with probable soft tissue attenuation artifact in the distal i nferior wall. No definite evidence of ischemia or infarct. 2. Left ventricular ejection fraction within normal limits without segmental wall motion abnormaliti es. 3. No diagnostic EKG changes of ischemia following pharmacologic stress. PQRS ATTESTATIONS: Measure 322 - Is this imaging test primarily performed on a low-risk surgery patient for preoperative evaluation within 30 days preceding their low-risk non-cardiac surgery? Low-risk surgery is defined as cardiac or myocardial infarction less than 1%, including (but not limited to) endoscopic pr ocedures, superficial procedures, cataract surgery, and excisional breast surgery: Answer: No Measure 323 - Is this imaging test performed primarily for the monitoring of an asymptomatic patient who had percutaneous coronary intervention on the visit date or within 2 years of the visit date? An swer: No Measure 324 - Is this imaging test performed primarily for the initial detection and risk assessment on an asymptomatic, low coronary heart disease patient? Low CHD risk definition = clinicians should consider the maximum number of available patient factors used to estimate risk based on [place] (A TP III criteria), typically age, gender, diabetes, smoking status, and use of blood pressure medicati on, and integrate age appropriate estimates for missing elements, such as LDL or standard blood press ure. Answer: No Dictated by: Oscar Ceja M.D. on 04/30/2016 at 11:10 Approved by: Oscar Ceja M.D. on 04/30/2016 at 11:10
--- NOTE | 2016-04-30 12:20 | PCM.DIMED ---
Renee Childress DO 04/30/16 1220: Discharge Instructions Date of Service Apr 30, 2016 Dates of Hospitalization Apr 27, 2016 at 14:48 Discharge Diagnosis Discharge Diagnosis 1. Unstable angina, acute on chronic, improved 2. Acute on chronic abdominal pain, present on admission, active 3.LLL nodules 02/2016 4.Diabetes mellitus type 2, non-insulin using 5.GERD/hiatal hernia 6.CAD/STEMI RCA stent 7.Hypertension 8.Posttraumatic Seizures, petit mal, migraines 9.QUETA/CPAP 10.BPH 11.L4-L5 ruptured Diet Heart Healthy, Diabetic Activity Limited until seen by PCP Call your provider Shortness of breath Patient Instructions Please follow up with your regular gas and oil servicer, Dr. Avila. Please follow up with Dr. Thao as your PCP in the next week or so. You need to call the residency clinic and make an appointment and tell them which doctor you want to see. You can establish care with him. Please follow up with your PCP regarding your lung nodule. He or she will decide how this needs to be followed. Please continue a low carb diet. Please read the books suggested to you by Dr. Mauricio. You were given scripts for nitro patch, the isosorbide and the spray. You can have a choice of which to use. Please do NOT combine the spray and the isosorbide. Stevie Patterson MD 05/01/16 7052: Discharge Instructions Attending's Statement The patient was seen and examined together with Dr. Childress on 04-30-16 and I agree with the history, exam and plan as outlined in the note above. Renee Childress DO Apr 30, 2016 12:20 Stevie Patterson MD May 01, 2016 16:57
[2016-04-30] MEDS ORDERED: PANT20TA2 PO (12:22)
[2016-04-30] MEDS ORDERED: ISOS30TA4 PO (12:22)
[2016-04-30 12:30] VITALS: BP 156/70; PULSE 48; RESP 16; O2SAT 95
[2016-04-30] MEDS ORDERED: NTG3T TD (13:51)
[2016-04-30] MEDS ORDERED: NITR12SP5 TL (13:54)
--- NOTE | 2016-04-30 14:03 | NUR ---
Social Work Note: Initial Assessment/Discharge Data& Assessment: EMR reviewed. Per pt is medically ready for discharge. BOB met with pt at bedside to confirm discharge plan and assess for any unmet needs. Tomas Deleon is a 65 year old male under observation for chest pain beginning on 04/27/2016. Pt has Medicare and AARP Supplement. Pt sees Janina SEYMOUR for primary care. Pt lives in [place] and is independent at baseline with no DME use. Pt denies any HH or SNF hx. Pt denies any LTC insurance or [facility] service connection. Pt explained his daughter lives in [place] and he has no local family in [place]. SW provided pt with DPOA paperwork for pt to review and complete when possible. Pt has his private vehicle here at the hospital and plans to drive himself home. Pt denies any other needs. No other discharge needs identified. Plan: Per pt is medically ready to discharge home via POV. Pt denies any other needs. No other discharge needs identified. COCO Mendoza Addendum: 04/30/16 at 1413 by ISELA SAMUEL Amended: Links added.
[2016-04-30] MEDS ORDERED: LOSA25TA21 PO (14:30)
[2016-04-30] MEDS ORDERED: NITR0.4T SL (14:30)
[2016-04-30] MEDS ORDERED: METO25TA6 PO (14:30)
--- NOTE | 2016-04-30 16:42 | PCM.DC.MED ---
Discharge Summary Date of Service Apr 30, 2016 Dates of Hospitalization Date of Hospital Admission Apr 27, 2016 at 14:48 Date of Discharge: Apr 30, 2016 Providers: Admitting Physician: Stephany Genao MD Primary Care Physician: Janina Boyer Attending Physician: Stephany Genao MD Diagnosis at Time of Discharge Diagnosis at Time of Discharge 1. Unstable angina, acute on chronic, improved 2. Acute on chronic abdominal pain, present on admission, active 3.LLL nodules 02/2016 4.Diabetes mellitus type 2, non-insulin using 5.GERD/hiatal hernia 6.CAD/STEMI RCA stent 7.Hypertension 8.Posttraumatic Seizures, petit mal, migraines 9.QUETA/CPAP 10.BPH 11.L4-L5 ruptured Procedures XRay, CTs & MRIs X-RAY CHEST ONE VIEW IMPRESSION: No acute disease Dictated by: Gary Randhawa M.D. on 04/27/2016 at 14:13 CT ANGIO CHEST PULMONARY EMBOLISM IMPRESSION: 1. No evidence of pulmonary embolism or aortic dissection. 2. Segmental wall thickening of the visualized proximal duodenum consistent with a nonspecific duodenitis. 3. Postsurgical changes consistent with prior Brody fundoplication. 4. Small left pulmonary nodules remonstrated with possible slight increase in size of a small left lingular nodule measuring up to 4 mm. Recommend followup in 6 months to demonstrate stability if clinically indicated. Dictated by: Oscar Ceja M.D. on 04/28/2016 at 9:08 US ABDOMEN IMPRESSION: 1. No evidence of cholelithiasis or cholecystitis. Dictated by: Oscar Ceja M.D. on 04/28/2016 at 15:[address] Genao's H and P: "65-year-old male, presented 2015 with acute on chronic angina, treated with LAD distal balloon angioplasties without stent, re- presented 2015 with abdominal pain/anginal equivalent during exertion self-limiting no better with nitroglycerin with, CT chest/abdomen without acute findings and anterior ST changes, evaluated by cardiology at that time recommended follow-up with primary menswear salesperson Jose and consideration for isosorbide in the future. His [facility] appt is pending. TOday, He woke up with epigastric abdominal/ midsternal pressure, mildly improved w/ nitro, proceeded to go to his cardiac rehab, pressure worse, walked to ER instaed. no acid reflux/vomiting/spicy food last night. diarrhea is due to IBS. prior trigylcerides have been in the 500s. no EGD since hiatal hernia repair 20 years ago. In the ER, 178/68, 57, chest pain improved with nitroglycerin 3, then with morphine, metoprolol administered. heparin gtt started. Ongoing abdominal and chronic right lower back pain. no better w/ maalox" Hospital Course Tomas Deleon is a 65-year-old male with past medical history of acute on chronic angina, multi-vessel coronary artery disease, anterior TX treated with LAD distal balloon angioplasties without stent, DM type II, GERD, dyslipidemia, hypertriglyceridemia, hypertension, hiatal hernia s/p repair 20 years ago. Admitted for treatment of unstable angina. Hospital day 4. 1. Unstable angina, acute on chronic, improved - History of multi-vessel coronary artery disease, anterior TX treated with LAD distal balloon angioplasties without stent - Continued lsosorbide mononitrate 30 mg BID, gave patient the option of isosorbide OR nitro patch on D/C - PRN SL nitroglycerin, breakthrough chest pain given - Troponin remained stable <0.010 - Continued Tele - Pharmacologic stress test done with negative results - Cardiology following appreciate their input and expertise 2. Acute on chronic abdominal pain, present on admission, active - Radiographic chronic pancreatitis w/o gallstones 02/2016, prior transaminitis 02/2016 and 03/2016, consider pancreatitis, gastroenteritis, - Lipase 29 - Elevated white count at admission 11.1 - Advanced diet, heart healthy, limit carbs to 45 mg daily - Abdominal ultrasound showing no evidence of cholecystitis, cholelithiasis Chronic issues known prior to admission, present on admission: 3.LLL nodules 02/2016 -Follow up with PCP, radiology suggests CT in 6 months, at the discretion of PCP 4.Diabetes mellitus type 2, non-insulin using - In 02/2016 A1c 7.2 - Extensive education done by the team about life style changes - Low carb diet 5.GERD/hiatal hernia -Protonix PO Q day 6.CAD/STEMI RCA stent -Continued aspirin and clopidogrel 7.Hypertension -Continued metoprolol 8.Posttraumatic Seizures, petit mal, migraines -Not on antiepileptic normally 9.QUETA/CPAP -Continued nightly CPAP 10.BPH -Continued Flomax 11.L4-L5 ruptured Exam Vital Signs (Last) Date Time Temp Pulse Resp B/P Pulse Ox O2 Delivery O2 Flow Rate FiO2 04/30/16 12:30 36.8 48 16 156/70 95 Room Air 2.00 Exam General: Alert, Oriented X3, Cooperative, No Acute Distress Head: Normocephalic, atraumatic. External ears normal. Eyes: PERRLA, EOMI. Anicteric sclerae. Mouth: Mouth Normal, Mucous Membranes Moist/Gillespie Neck: Neck supple with full range of motion. No JVD Chest & Lungs: Clear to auscultation bilaterally with no crackles, wheezes, or rhonchi. Cardiovascular: Regular Rate/Rhythm, normal S1, Normal S2, No Murmurs/Rubs/ Gallops Abdomen: Mild tenderness to RUQ, Non-distended, No masses, Normoactive bowel tones, Soft, no ecchymoses Musculoskeletal: Normal Range of Motion Extremities: No cyanosis/clubbing/edema bilaterally, peripheral pules +2 in all extremities b/l Neurological: Grossly Neurologically Intact, normal speech, strength normal 4/ 4 in all extremities b/l, Test 04/27/16 13:25 04/27/16 19:20 04/27/16 23:14 04/28/16 01:20 Magnesium Level 2.1mg/dL (1.6-2.6) Total Bilirubin 0.3mg/dL (0.0-1.2) Aspartate Amino Transf (AST/SGOT) 16U/L (0-50) Alanine Aminotransferase (ALT/SGPT) 14U/L (0-44) Alkaline Phosphatase 80U/L (25-160) Total Protein 7.6g/dL (6.4-8.4) Albumin 4.3g/dL (3.4-5.0) Lipase 29U/L (13-60) Pro-B-Type Natriuretic Peptide 241.2pg/mL (0-376) Free Thyroxine Index 2.6 (1.2-4.9) Thyroxine (T4) 8.3ug/dL (4.5-12.0) Triiodothyronine (T3) Uptake 31% (24-39) Urine Color Yellow (YELLOW) Urine Appearance Clear (CLEAR,HAZY) Urine pH 5.5 (5.0-8.0) Urine Specific [place] 1.020 (1.003-1.035) Urine Protein Negativemg/dL (NEG,TRACE) Urine Glucose (UA) Negativemg/dL (NEGATIVE) Urine Ketones Negativemg/dL (NEGATIVE) Urine Occult Blood Negative (NEGATIVE) Urine Nitrite Negative (NEGATIVE) Urine Bilirubin Negative (NEGATIVE) Urine Urobilinogen Normalmg/dL (NORMAL) Urine Leukocyte Esterase Negative (NEGATIVE) Urine RBC 0-2/hpf (0-2) Urine WBC 0-5/hpf (0-5) Urine Epithelial Cells Occasional/hpf (NONE-MOD) Urine Crystals None seen (NONE SEEN) Urine Bacteria None/hpf (NONE-FEW) Urine Hyaline Casts None/lpf (NONE) Urine Granular Casts None seen (NONE SEEN) Urine Waxy Casts None seen (NONE SEEN) Urine Red Blood Cell Casts None seen (NONE SEEN) Urine White Blood Cell Casts None seen (NONE SEEN) Urine Mucus None seen (None Seen) Urine Trichomonas None seen (NONE SEEN) Urine Yeast None (NONE SEEN) Urine Culture Reflexed Not indicated Hold Blue Top Tube Received (Received) Test 04/28/16 06:45 04/28/16 11:55 04/30/16 04:11 Total Creatine Kinase 30U/L (21-232) Creatine Kinase MB 1.0ng/mL (0.0-10.4) Creatine Kinase MB % % (0.0-5.0) Troponin T < 0.010ug/L (0.0-0.011) Activated Partial Thromboplast Time 28.1sec (22.8-33.0) White Blood Count 6.3th/mm3 (3.8-10.1) Red Blood Count 4.35mil/mm3 (4.40-5.80) Hemoglobin 14.4g/dL (13.8-17.2) Hematocrit 42.3% (41.0-50.0) Mean Corpuscular Volume 97.2fL (81-100) Mean Corpuscular Hemoglobin 33.1pg (27.0-35.0) Mean Corpuscular Hemoglobin Concent 34.0% (32.0-37.0) Red Cell Distribution Width 12.8% (12.3-15.4) Platelet Count 255bil/L (150-400) Neutrophils (%) (Auto) 52.5% (40-74) Lymphocytes (%) (Auto) 28.5% (14-46) Monocytes (%) (Auto) 12.4% (4-12) Eosinophils (%) (Auto) 5.3% (0-5) Basophils (%) (Auto) 1.1% (0-3) Sodium Level 145mEq/L (134-144) Potassium Level 4.4mEq/L (3.5-5.2) Chloride Level 109mEq/L (97-108) Carbon Dioxide Level 24mmol/L (18-29) Blood Urea Nitrogen 15mg/dL (8-27) Creatinine 1.00mg/dL (0.76-1.27) Estimat Glomerular Filtration Rate 79mL/min (>59) Glucose Level 162mg/dL (60-99) Calcium Level 9.3mg/dL (8.5-10.1) Discharge Medications Discharge Medications Alirocumab (Praluent Pen) 75 Mg/Ml Pen.injctr 75 MG SQ q14 days (Reported) Ascorbic Acid (Vitamin C) 1,000 Mg Tab.chew 1,000 MG PO DAILY (Reported) Aspirin (Aspirin) 325 Mg Tablet 325 MG PO DAILY (Reported) Clopidogrel (Clopidogrel) 75 Mg Tablet 75 MG PO DAILY Prescribed by: RUBY PAK MD Isosorbide MN ER (Isosorbide MN ER) 30 Mg Tab.er.24h 30 MG PO 0730 Prescribed by: HARESH DRAKE DO Losartan Potassium (Losartan Potassium) 25 Mg Tablet 12.5 MG PO DAILY Prescribed by: ERIC THAO DO Metformin (Glucophage) 1,000 Mg Tablet 1,000 MG PO BID (Reported) Metoprolol Tartrate (Metoprolol Tartrate) 25 Mg Tablet 12.5 MG PO BID Prescribed by: ERIC THAO DO Nitroglycerin (Nitro-Dur) 1 Ea Patch 1 EA TD DAILY Prescribed by: HARESH DRAKE DO Pantoprazole DR (Pantoprazole DR) 20 Mg Tablet.dr 20 MG PO DAILYAC Prescribed by: HARESH DRAKE DO Tamsulosin (Flomax) 0.4 Mg Capsule 0.4 MG PO DAILY (Reported) Terbinafine (Lamisil) 250 Mg Tablet 250 MG PO DAILY (Reported) As needed Loperamide (Loperamide) 2 Mg Tablet 4 MG PO DAILY PRN PRN For Diarrhea or Loose Stool (Reported) Nitroglycerin (Nitrolingual) 12 Gm [place] 12 GM TL 1-2 sprays PRN PRN For Chest Pain Prescribed by: HARESH DRAKE DO Nitroglycerin SL (Nitrostat) 0.4 Mg Tab.subl 0.4 MG SL Q5MIN PRN PRN For Chest Pain Prescribed by: ERIC THAO DO Followup Plan Discharge Diet: Heart Healthy, Diabetic Discharge Activity: Limited until seen by PCP Patient Instructions Please follow up with your regular menswear salesperson, Dr. Avila. Please follow up with Dr. Thao as your PCP in the next week or so. You need to call the residency clinic and make an appointment and tell them which doctor you want to see. You can establish care with him. Please follow up with your PCP regarding your lung nodule. He or she will decide how this needs to be followed. Please continue a low carb diet. Please read the books suggested to you by Dr. Mauricio. You were given scripts for nitro patch, the isosorbide and the spray. You can have a choice of which to use. Please do NOT combine the spray and the isosorbide. Attending Statement The patient was seen and examined together with Dr. Drake on 04-30-16 and I agree with the history, exam and plan as outlined in the note above. Haresh Drake DO Apr 30, 2016 16:42 Stevie Patterson MD May 01, 2016 16:58
== END 2016-04-30 14:39 | disposition home or self-care (01) ==
LOC: SED 13:02 → MPC 14:48 → PCC 22:14
PROVIDERS: ADMIT Urology; ATTEND Urology
DX: I25.110 Atherosclerotic heart disease of native coronary artery with unstable angina pectoris (principal); R10.9 Unspecified abdominal pain; R91.8 Other nonspecific abnormal finding of lung field; E11.9 Type 2 diabetes mellitus without complications; K21.9 Gastro-esophageal reflux disease without esophagitis; K44.9 Diaphragmatic hernia without obstruction or gangrene; I10 Essential (primary) hypertension; G40.802 Other epilepsy, not intractable, without status epilepticus; G47.33 Obstructive sleep apnea (adult) (pediatric); N40.0 Benign prostatic hyperplasia without lower urinary tract symptoms; G43.909 Migraine, unspecified, not intractable, without status migrainosus; I25.2 Old myocardial infarction; E78.5 Hyperlipidemia, unspecified; Z87.39 Personal history of other diseases of the musculoskeletal system and connective tissue; Z95.5 Presence of coronary angioplasty implant and graft; Z79.84 Long term (current) use of oral hypoglycemic drugs; Z79.82 Long term (current) use of aspirin; Z87.891 Personal history of nicotine dependence
CPT/HCPCS: 36415; 71010; 71275; 76705; 78452; 80048; 80053; 81000; 82550; 82553; 83690; 83735; 83880; 84436; 84479; 84484; 85014; 85018; 85025; 85027; 85730; 93005; 93017; 96365; 96366; 96375; 96376; 99285; A9502; G0378; J0280; J1644; J2270; J2785; J7030; Q9967

== ENCOUNTER 2016-08-17 10:59 | Observation (INO) | payer MEDICARE ==
[~2016-08-17] VITALS: Ht 165.1 cm; Wt 71.4 kg
[~2016-08-17 10:59] MED LIST changes: +ISOS30TA4 PO; +LOSA25TA21 PO; -METO-272 PO; +METO25TA6 PO; +NITR0.4T SL; +NTG3T TD; +PANT20TA2 PO; +TERB250T4 PO
[2016-08-17 11:00] VITALS: BP 144/92; PULSE 66; RESP 20; O2SAT 98
--- NOTE | 2016-08-17 11:19 | ED.REPORT ---
HPI-Chest Pain 40 and Over Date of Service August 17, 2016 ED Provider: Franki Hope MD A 65 year old male with a medical history including STEMI, TIA, CAD, DM, hypertension, and peripheral vascular disease s/p cardiac stenting and catheterization presents to the ED with intermittent left shoulder pain onset three days ago. The pain radiates down his left arm. Associated symptoms include left arm numbness/tingling, generalized weakness, chest pressure, and SOB. His SOB is exacerbated with activity. The patient denies nausea, vomiting, lightheadedness, dizziness, nasal congestion, cough, or other symptoms. He initially thought his pain was musculoskeletal and began taking OTC pain medication, with no relief. Last night he applied a 0.1mg Nitro patch, which relieved his pain. His current symptoms are dissimilar from previous cardiac symptoms. He spoke with his food equipment service technician's office who sent him here. Nursing Notes Stated Complaint: HEART SYMPTOMS SENT BY DR OFFICE Chief Complaint: Chest Pain Nursing Notes Reviewed: Yes Allergies: Coded Allergies: Sulfa (Sulfonamide Antibiotics) (Verified Allergy, Intermediate, 03/28/16) Flu Like, High FEver, Joint pain, muscle pain. diazepam (Unverified Allergy, Intermediate, 03/29/16) Makes pt aggressive, per pt adhesive tape (Verified Allergy, Mild, Rash,Itching,, 03/28/16) lactose (Verified Allergy, Unknown, 03/28/16) Lactose Qgonble-Rlp-Kil Reductase Inhibitor (Verified Adverse Reaction, Severe, muscle/joint pain, 04/27/16) Scheduled Alirocumab (Praluent Pen) 75 Mg/Ml Pen.injctr 75 MG SQ q14 days Ascorbic Acid (Vitamin C) 1,000 Mg Tab.chew 1,000 MG PO DAILY Aspirin (Aspirin) 81 Mg Tablet 81 MG PO DAILY Clopidogrel (Clopidogrel) 75 Mg Tablet 75 MG PO DAILY Loperamide (Loperamide) 2 Mg Tablet 4 MG PO DAILY Losartan Potassium (Losartan Potassium) 25 Mg Tablet 25 MG PO DAILY Metformin (Glucophage) 1,000 Mg Tablet 1,000 MG PO BID Nitroglycerin (Nitro-Dur) 1 Ea Patch 1 EA TD DAILY Tamsulosin (Flomax) 0.4 Mg Capsule 0.4 MG PO DAILY Scheduled PRN Nitroglycerin SL (Nitrostat) 0.4 Mg Tab.subl 0.4 MG SL Q5MIN PRN PRN For Chest Pain General Time Seen by MD: 11:18 Chief Complaint Other (Left Shoulder Pain ) Hx Obtained From: Patient Arrived By: Walk-in Sudden in Onset?: No Onset Occurred: 3 days ago Symptom Duration: Since onset Location: : Chest left: Chest right: Shoulder left Quality: Painful, Pressure Radiation: : Arm left Severity: Current: Moderate Severity: Maximum: Moderate Exacerbated by: Deep breath Context Related History: Reports: Acute coronary syndrome, Diabetes mellitus, Hypertension, Myocardial infarction Recent Healthcare: Recent doctor visit Past Medical History Past Medical History Notes: Past Medical History STEMI TIA CAD Type 2 Diabetes Atherosclerotic peripheral vascular disease GERD dyslipidemia hypertension hiatal hernia posttraumatic seizures Past Surgical History Stent placement x3, x2 in 05/2016 Retrograde left heart catheterization (02/2016) Balloon angioplasty to the distal left anterior descending (02/2016) Reports: Appendectomy, Tonsillectomy Family History Maternal grandfather disabled by [place] Maternal uncle with fatal [place] Mother without known heart disease Smoking History Former Smoker Social History Patient stopped smoking for 22 years then restarted in 01/2016 Alcohol Use: "Social" Drug Use: Denies drug use Ambulatory Status Independent Review of Systems Constitutional: Reports: Weakness - generalized, Denies: Fever Respiratory: Reports: Shortness of breath, Denies: Non-productive cough Cardiovascular: Reports: Chest pain (Pressure) GI: Denies: Diarrhea, Nausea, Vomiting Musculoskeletal: Reports: Extremity pain (Left arm), Joint pain (Left Shoulder) Neurologic: Reports: Numbness (Left arm, tingling), Denies: Dizziness, Lightheaded Complete sys rev & neg: except as marked. Ears / Nose / Throat: Denies: Nasal congestion Physical Exam Initial Vital Signs Vital Signs (First) Date Time Temp Pulse Resp B/P Pulse Ox O2 Delivery O2 Flow Rate FiO2 08/17/16 11:00 36.5 66 20 144/92 98 Room Air 08/17/16 13:00 2 Initial VS: Reviewed Head / Eyes: Atraumatic, Normocephalic ENT: Conjunctiva normal, No scleral icterus Neck: Supple, Full range of motion Skin: Warm, Dry, No cyanosis Neurologic: Alert, Oriented, Nonfocal Psychiatric: Mood/affect normal, Behavior normal, Normal thought content General/Constitutional: Awake, Alert Respiratory / Chest: Breath sounds NL, Breath sounds = bilat, No respiratory distress Cardiovascular: Heart rate NL, Regular rhythm, Heart sounds NL, No murmurs Abdomen: Soft, Non-tender Lower Extremity / Pelvis / MS: Inspection NL, No edema Interpretation & Diagnostics Lab Results Interpretation Result Diagram: 08/17/16 1115 08/17/16 1115 Test 08/17/16 11:15 White Blood Count 6.4th/mm3 (3.8-10.1) Red Blood Count 4.73mil/mm3 (4.40-5.80) Hemoglobin 15.6g/dL (13.8-17.2) Hematocrit 45.9% (41.0-50.0) Mean Corpuscular Volume 97.0fL (81-100) Mean Corpuscular Hemoglobin 33.0pg (27.0-35.0) Mean Corpuscular Hemoglobin Concent 34.0% (32.0-37.0) Red Cell Distribution Width 12.5% (12.3-15.4) Platelet Count 271bil/L (150-400) Neutrophils (%) (Auto) 59.7% (40-74) Lymphocytes (%) (Auto) 27.9% (14-46) Monocytes (%) (Auto) 8.8% (4-12) Eosinophils (%) (Auto) 2.5% (0-5) Basophils (%) (Auto) 0.9% (0-3) Activated Partial Thromboplast Time 25.0sec (22.8-33.0) Sodium Level 139mEq/L (134-144) Potassium Level 4.4mEq/L (3.5-5.2) Chloride Level 102mEq/L (97-108) Carbon Dioxide Level 21mmol/L (18-29) Blood Urea Nitrogen 17mg/dL (8-27) Creatinine 0.90mg/dL (0.76-1.27) Estimat Glomerular Filtration Rate 89mL/min (>59) Glucose Level 144mg/dL (60-99) Calcium Level 10.0mg/dL (8.5-10.1) Magnesium Level 1.9mg/dL (1.6-2.6) Total Bilirubin 0.5mg/dL (0.0-1.2) Aspartate Amino Transf (AST/SGOT) 15U/L (0-50) Alanine Aminotransferase (ALT/SGPT) 16U/L (0-44) Alkaline Phosphatase 71U/L (25-160) Troponin T < 0.010ug/L (0.0-0.011) Total Protein 7.3g/dL (6.4-8.4) Albumin 4.4g/dL (3.4-5.0) ECG Interpretation ECG Interpretation: Sinus rhythm rate 63 T-wave inversions in leads III, aVF, V1 - V4 unchanged from prior Possible mild ST elevation in V1 also unchanged from prior Time: 11:09 Interpreted by: ED physician X-Ray Chest Interpretation Chest Xray Interpretation: IMPRESSION: No acute cardiopulmonary disease process. Dictated by: Michelle Jaimes MD, PhD on 08/17/2016 at 11:37 View: Portable, 1 view Interpretation / Wet Read by: Interpret - Radiologist Re-Eval/Medical Decision Med Decision/Clinical Course 65-year-old male with history of CAD, STEMI, stents 5, TIA, diabetes, hypertension presenting with left-sided chest pressure and left shoulder pain 4 days. Improved with nitroglycerin. EKG no acute changes. Troponins negative 1. Discussed with food equipment service technician recommends admission with heparin drip and nitroglycerin patch. Nitro drip if not resolved with nitroglycerin patch. Admitted to hospital. Source of Hx: Old records Time of Eval: 12:00 Patient Status: Condition improved Re-Evaluation/Progress Note: Discussed with patient lab and x-ray results, diagnosis, and plan for admit. Patient agrees with plan for care and all questions were addressed. Consultation #1: Referral / Consult Name: Jill Mcmahan MD Consulted With: Cardiology Call Returned at: 12:18 Shipbuilding Draftsperson: Will see patient, Agrees with eval, Agrees with plan Note: Recommends Heparin drip and Nitro patch. Agrees with plan for admit. Consultation #2: Referral / Consult Name: Jorge Varner Consulted With: Hospitalist Call Returned at: 12:29 Shipbuilding Draftsperson: Agrees with eval, Agrees with plan, Accepts admit Counseled Regarding: Diagnosis, Lab results, Need for admission Discharge & Departure Primary Impression: Chest pain Chest pain type: chest pain due to myocardial ischemia Ischemic chest pain type: unstable angina pectoris Qualified Code: I20.0 - Unstable angina Disposition: ADMITTED TO HOSPITAL Discharge Condition All VS Reviewed: Yes Condition: Improved Referrals: Janina Boyer (PCP) Crit Care Except Billable Proc Time Spent: 30-74 minutes (60) Services Performed: Patient management by me, Time spent at bedside, Reviewing test results, Reviewing imaging, Discussing patient care, Documentation in record Scribe Attestation Portions of this note were transcribed by Dotty Kyle. I, Dr. Hope, personally performed the history, physical exam, and medical decision-making; I reviewed and confirmed the accuracy of the information in the transcribed note. Signed by: Brady Coelho, 08/17/2016, 14:58 copies to: Janina Boyer Ben M MD August 17, 2016 11:19 DOTTY KYLE August 17, 2016 11:38
[2016-08-17 11:36] LABS: BASOPHILS % (AUTO) 0.9 % (0-3); EOSINOPHILS % (AUTO) 2.5 % (0-5); MONOCYTES % (AUTO) 8.8 % (4-12); NEUTROPHILS % (AUTO) 59.7 % (40-74); Platelet Count 271 bil/L (150-400)
--- NOTE | 2016-08-17 11:39 | DRSVH ---
PROCEDURE: X-RAY CHEST ONE VIEW, PORTABLE ([id number]) INDICATIONS: Chest pain TECHNIQUE: One view of the chest was acquired. COMPARISON: [facility], CR, XR CHEST 1VW (PORTABLE), 04/27/2016, 13:43. FINDINGS: Surgical changes and devices: None. Lungs and pleura: No pleural effusions or pneumothorax. Lungs are clear. Mediastinum: Mediastinal contours appear normal. Heart size is normal. Bones and chest wall: No suspicious bony lesions. Overlying soft tissues appear unremarkable. IMPRESSION: No acute cardiopulmonary disease process. Dictated by: Michelle Jaimes MD, PhD on 08/17/2016 at 11:37 Approved by: Michelle Jaimes MD, PhD on 08/17/2016 at 11:37
[2016-08-17 12:11] LABS: Magnesium 1.9 mg/dL (1.6-2.6)
[2016-08-17 12:12] LABS: TROPONIN T < 0.010 ug/L (0.0-0.011)
[2016-08-17] MEDS ORDERED: Heparin 25K Unit/500mL 0.45 NS 25,000 UNIT in IV Premix 1 EACH IV ONE (12:30)
[2016-08-17] MEDS ORDERED: Heparin 5,000 Unit/mL Inj IVPUSH ONE (12:30)
[2016-08-17] MEDS ORDERED: Ondansetron 2 mg/mL 2 mL Inj IVPUSH PRN (12:35)
[2016-08-17] MEDS ORDERED: Alum-Mag Hydrox-Simeth 30 mL Suspension PO PRN (12:35)
[2016-08-17 13:00] VITALS: BP 127/69; PULSE 53; RESP 18; O2SAT 96
[2016-08-17] MEDS ORDERED: LOSA25TA21 PO (13:15)
[2016-08-17] MEDS ORDERED: ASPI-973 PO (13:21)
[2016-08-17] MEDS ORDERED: Heparin 25K Unit/500mL 0.45 NS 25,000 UNIT in IV Premix 1 EACH IV SCH (14:15)
[2016-08-17] MEDS ORDERED: Heparin 5,000 Unit/mL Inj IVPUSH PRN (14:15)
[2016-08-17 14:35] LABS: APPEARANCE,URINE HAZY (CLEAR,HAZY); COLOR,URINE STRAW (YELLOW); OCCULT BLOOD,URINE NEGATIVE (NEGATIVE); PH,URINE 5.5 (5.0-8.0); UROBILINOGEN,URINE NORMAL (NORMAL)
[2016-08-17 14:36] VITALS: PULSE 60
[2016-08-17 14:54] VITALS: BP 148/81; PULSE 57; RESP 18; O2SAT 95
[2016-08-17] MEDS ORDERED: PT Own Med->Oral Medication PO PRN (15:10)
--- NOTE | 2016-08-17 15:43 | PCM.HPMED ---
Subjective Date of Service August 17, 2016 Primary Provider: Admitting Physician: Jorge Varner Primary Care Physician: Janina Boyer Attending Physician: Jorge Varner Chief Complaint: Left upper arm discomfort with numbness History of Present Illness: PCP is Janina SEYMOUR. Assistant Nurse Manager is Dr. Avila. Tomas is a 65-year-old gentleman with complicated cardiac history with history of stenting (most recently 05/24/16 [facility]), diabetes type II, hypertension, hyperlipidemia who presents to the ER at the recommendation of his gold letterer for new onset left upper extremity discomfort and numbness that started on Saturday of this week. Tomas reports that Saturday earlier this week he experienced upon awakening left upper shoulder discomfort which she originally attributed to sleeping on it wrong. This discomfort spread to his left forearm is well throughout the course of the day, and he continued to consider it secondary to sleeping in an abnormal position. This continued until yesterday () at which time he suspected it may be cardiac related, and for which she took 2 separate 3 dose courses of nitroglycerin sublingually. Each dose of nitroglycerin relieved his pain temporarily. Today (Saturday) prior to calling his gold letterer, and reported that he placed one of his nitroglycerin patches. He reports at this time a low level discomfort in his left upper shoulder and forearm with associated numbness in those areas. He reports minimal central chest discomfort described as a dull ache at this time. He also reports headache (this is chronic for him and unchanged), some dizziness and lightheadedness associated with standing too quickly but not while resting as he is here in the ER. He otherwise denies diaphoresis, nausea , vomiting. In the ER, vital signs are stable and labs are fairly unremarkable. ER physician discussed the case with cardiology on-call, and given the patient's complex cardiac history (especially most recently) and his persistent symptoms, decision was made to admit under observation. Patient admitted under observation status (less than to midnight stay) is on severity of presentation, comorbid conditions, and risk of complications. Review of Systems: Comprehensive review of systems is otherwise negative except for pertinent positives and negatives as designated above in the history of present illness. Allergies Coded Allergies: Sulfa (Sulfonamide Antibiotics) (Verified Allergy, Intermediate, 03/28/16) Flu Like, High FEver, Joint pain, muscle pain. diazepam (Unverified Allergy, Intermediate, 03/29/16) Makes pt aggressive, per pt adhesive tape (Verified Allergy, Mild, Rash,Itching,, 03/28/16) lactose (Verified Allergy, Unknown, 03/28/16) Lactose Mzqggfr-Eri-Osu Reductase Inhibitor (Verified Adverse Reaction, Severe, muscle/joint pain, 04/27/16) Home Medications Medication reconciliation is complete: Alirocumab 75 mg subcutaneously every 2 weeks Vitamin C 1000 mg daily Aspirin 81 mg daily Clopidogrel 75 mg daily Loperamide 4 mg daily Losartan 25 mg daily Metformin 1000 mg twice a day Nitroglycerin patch applied once daily Nitroglycerin sublingual tablets 0.4 mg sublingually every 5 minutes 3 as needed for chest pain Tamsulosin 0.4 mg daily Exam Result Diagram: 08/17/16 1115 08/17/16 1115 Review of Systems: Constitutional: Negative, except as otherwise mentioned in the history above. Ophthalmologic: Negative, except as otherwise mentioned in the history above. Cardiovascular: Negative, except as otherwise mentioned in the history above. Respiratory: Negative, except as otherwise mentioned in the history above. Gastrointestinal: Negative, except as otherwise mentioned in the history above. Genitourinary: Negative, except as otherwise mentioned in the history above. Musculoskeletal: Negative, except as otherwise mentioned in the history above. Neurological: Negative, except as otherwise mentioned in the history above. Psychiatric: Negative, except as otherwise mentioned in the history above. Hematologic/Lymphatic: Negative, except as otherwise mentioned in the history above. Allergic/Immunologic: Negative, except as otherwise mentioned in the history above. PMH CAD status post STEMI in February 2016: * Most recent intervention was 05/24/16 at [facility] at which time he underwent rotational atherectomy of the RCA with placement of SYEDA, and placement of obtuse marginal SYEDA. At that time FFR of the mid LAD was reportedly normal (0.87). * Cardiac stress test on 04/30/16 and was reportedly normal * Echocardiogram on 03/08/16 showed an EF of 75-80% and minimal dysfunction with the exception of right ventricular dilation with severe hypokinesis. Diabetes mellitus type II, not on insulin Hypertension, essential Hyperlipidemia QUETA on CPAP PVD Chronic low back pain associated with degenerative disc disease * He has had multiple facet block injections in the past There is mention in the record of posttraumatic seizures Patient reports history of migraines BPH GERD Left lower lobe pulmonary nodules Surgical History Multiple cardiac PCI including stent placement. Appendectomy, tonsillectomy, eye surgery in the past, left finger repair. Laparoscopic fundoplication. Family History Significant for heart disease: Maternal grandfather disabled by [place] Maternal uncle with fatal [place] Mother without known heart disease Social History Occupation: retired Hx Alcohol Use: No Hx Substance Use: No Hx Tobacco Use: Yes Smoking Status: Former Smoker (greater than [id number] history. Reports quitting February 2016.) Additional Information Patient lives locally. 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 Exam Vital Signs Vital Sign - Last Date Time Temp Pulse Resp B/P Pulse Ox O2 Delivery O2 Flow Rate FiO2 08/17/16 14:54 36.4 57 18 148/81 95 Room Air 08/17/16 13:00 2 Exam Patient is a well-nourished white male in no acute distress lying on the ER gurney. Pupils are equal and reactive to light, extraocular muscle movements intact, mucous membranes are moist and pink, no conjunctival injection. Sclerae are anicteric Neck is supple, nontender, without appreciable thyromegaly. Lungs are clear to auscultation bilaterally without appreciable wheezes, rhonchi , rales. Normal respiratory effort, and saturating well on room air. Heart rate and rhythm are regular (albeit somewhat bradycardic), no murmurs/rubs /gallops appreciated. No carotid bruit. Radial and posterior tibial pulses are 2+ bilaterally. Abdomen is soft, nontender. Bowel tones are present. Skin is without rash or ecchymosis. Patient has a subcutaneous nodule of approximately 2 cm x 2 cm in the right superior frontal region of scalp ( reportedly chronic). Extremities without edema/cyanosis. Grossly neurologically intact. Cranial nerves grossly intact. Normal speech. Normal mood and affect with appropriate thought content. Lab and Diagnostics Labs Laboratory Tests Test 08/17/16 11:15 08/17/16 14:20 White Blood Count 6.4th/mm3 (3.8-10.1) Red Blood Count 4.73mil/mm3 (4.40-5.80) Hemoglobin 15.6g/dL (13.8-17.2) Hematocrit 45.9% (41.0-50.0) Mean Corpuscular Volume 97.0fL (81-100) Mean Corpuscular Hemoglobin 33.0pg (27.0-35.0) Mean Corpuscular Hemoglobin Concent 34.0% (32.0-37.0) Red Cell Distribution Width 12.5% (12.3-15.4) Platelet Count 271bil/L (150-400) Neutrophils (%) (Auto) 59.7% (40-74) Lymphocytes (%) (Auto) 27.9% (14-46) Monocytes (%) (Auto) 8.8% (4-12) Eosinophils (%) (Auto) 2.5% (0-5) Basophils (%) (Auto) 0.9% (0-3) Activated Partial Thromboplast Time 25.0sec (22.8-33.0) Sodium Level 139mEq/L (134-144) Potassium Level 4.4mEq/L (3.5-5.2) Chloride Level 102mEq/L (97-108) Carbon Dioxide Level 21mmol/L (18-29) Blood Urea Nitrogen 17mg/dL (8-27) Creatinine 0.90mg/dL (0.76-1.27) Estimat Glomerular Filtration Rate 89mL/min (>59) Glucose Level 144mg/dL (60-99) Calcium Level 10.0mg/dL (8.5-10.1) Magnesium Level 1.9mg/dL (1.6-2.6) Total Bilirubin 0.5mg/dL (0.0-1.2) Aspartate Amino Transf (AST/SGOT) 15U/L (0-50) Alanine Aminotransferase (ALT/SGPT) 16U/L (0-44) Alkaline Phosphatase 71U/L (25-160) Troponin T < 0.010ug/L (0.0-0.011) Total Protein 7.3g/dL (6.4-8.4) Albumin 4.4g/dL (3.4-5.0) Urine Color Straw (YELLOW) Urine Appearance Hazy (CLEAR,HAZY) Urine pH 5.5 (5.0-8.0) Urine Specific [place] 1.020 (1.003-1.035) Urine Protein Negativemg/dL (NEG,TRACE) Urine Glucose (UA) Negativemg/dL (NEGATIVE) Urine Ketones Negativemg/dL (NEGATIVE) Urine Occult Blood Negative (NEGATIVE) Urine Nitrite Negative (NEGATIVE) Urine Bilirubin Negative (NEGATIVE) Urine Urobilinogen Normalmg/dL (NORMAL) Urine Leukocyte Esterase Negative (NEGATIVE) Urine RBC 0-2/hpf (0-2) Urine WBC 0-5/hpf (0-5) Urine Epithelial Cells Occasional/hpf (NONE-MOD) Urine Crystals None seen (NONE SEEN) Urine Bacteria None/hpf (NONE-FEW) Urine Hyaline Casts None/lpf (NONE) Urine Granular Casts None seen (NONE SEEN) Urine Waxy Casts None seen (NONE SEEN) Urine Red Blood Cell Casts None seen (NONE SEEN) Urine White Blood Cell Casts None seen (NONE SEEN) Urine Mucus Present (None Seen) Urine Trichomonas None seen (NONE SEEN) Urine Yeast None (NONE SEEN) Urinalysis Comment None Urine Culture Reflexed Not indicated Result Diagram: 08/17/16 1115 08/17/16 1115 Microbiology None this admission. X-Rays, CTs and MRIs Date of Service: 08/17/16 1108 PROCEDURE: X-RAY CHEST ONE VIEW, PORTABLE ([id number]) INDICATIONS: Chest pain IMPRESSION: No acute cardiopulmonary disease process. Dictated by: Michelle Jaimes MD, PhD on 08/17/2016 at 11:37 12-lead ECG Sinus rhythm with a rate of 63. Intervals are within the normal limits. Normal axis. No ST or T-wave changes suggestive of acute ischemia. Assessment & Plan 65-year-old gentleman with complicated cardiac history with history of stenting (most recently 05/24/16 [facility]), diabetes type II, hypertension , hyperlipidemia who presents to the ER at the recommendation of his gold letterer for new onset left upper extremity discomfort and numbness that started on Saturday of this week. # Unstable angina in patient with complex cardiac history (see detailed history above). Present on admission Right upper extremity discomfort and numbness which is relieved with nitroglycerin, but persisting over the last several days. No elevation of troponin, EKG unremarkable. Case discussed by ER physician with cardiology on-call, and decision made to admit under observation based on the complexity of his cardiac history Heparin drip initiated Telemetry monitoring Nitroglycerin as needed for pain Cardiology consult, and will see Continue cardiac medications (aspirin, losartan, clopidogrel, Praluent (if due for dose)) Monitor vitals and labs closely Chronic conditions: Diabetes mellitus type II, not on insulin-normal renal function, continue metformin Hypertension, essential-continue losartan Hyperlipidemia-continue Praluent (if due for dose) QUETA on CPAP-continue CPAP at night PVD-continue management for the above chronic conditions Chronic low back pain associated with degenerative disc disease-monitor pain level, and provide conservative management (such as Tylenol) There is mention in the record of posttraumatic seizures-not on medication for this, we will monitor Patient reports history of migraines-not on medication for this, and we will provide conservative management (such as Tylenol) BPH-continue tamsulosin GERD-heart healthy/consistent carb diet. No prophylaxis necessary. Left lower lobe pulmonary nodules-need outpatient follow-up (noncontrast chest CT) Punctate calcifications of pancreas noted on previous CT consistent with chronic pancreatitis Hepatic steatosis. Left adrenal adenoma. Moderate hiatal hernia. Chronic loose stools-continue Loperamide Patient is admitted under observation status (less than 2 minutes and) based on severity of presentation, comorbid conditions, risk of complication. Pain Evaluation: Adequate Pain Control GI Prophylaxis: Not indicated VTE Prophylaxis: Other (therapeutic heparin) Resuscitation Status: CPR: Attempt Resuscitation Attending Statement The patient was seen and examined together with Resident/House-Staff on 08/17/16 and I agree with the history, exam and plan as outlined in the note above. copies to: Janina Boyer; Gera Avila MD, Collin T DO August 17, 2016 15:43 Jorge Varner August 20, 2016 14:36
[2016-08-17] MEDS ORDERED: Sodium Chloride LOK Flush 10 mL Syringe IVFLUSH SCH (16:30)
--- NOTE | 2016-08-17 16:48 | NUR ---
Agitated Pt is agitated because the hospital won't let him take his own medications. MD talked to patient after discussing with pharmacy and pharmacy clearly stated they would not accept all of patients home meds. When pt was told this he got very angry that we would not bend the rules for him. This RN told him " if its against policy then I am not doing it." Pt then said well the last nurse let me go out to my car and get my wallet last time. Again this RN explained that that is against policy and is a liability and I would not be escorting him out to his car since he is here with chest pain." Pt escalated with his agitation and and wanted to leave AMA. MD was notified, MD went to bedside, explained all the risks. Pt wanted MD to walk him to his car. MD said that he is not able to leave the hospital with a patient. Pt then left AMA after signing paperwork
--- NOTE | 2016-08-17 18:43 | PCM.DC.MED ---
Discharge Summary Date of Service August 17, 2016 Dates of Hospitalization Date of Hospital Admission August 17, 2016 at 13:32 Date of Discharge: August 17, 2016 Providers: Admitting Physician: Jorge Varner Primary Care Physician: Janina Boyer Attending Physician: Jorge Varner Diagnosis at Time of Discharge Diagnosis at Time of Discharge Patient left AMA Unstable angina. Consultations Cardiology (however, patient left before being evaluated by elementary instructional coach). Procedures XRay, CTs & MRIs Date of Service: 08/17/16 1108 PROCEDURE: X-RAY CHEST ONE VIEW, PORTABLE ([id number]) INDICATIONS: Chest pain IMPRESSION: No acute cardiopulmonary disease process. Dictated by: Michelle Jaimes MD, PhD on 08/17/2016 at 11:37 ECG 12 Lead Sinus rhythm with a rate of 63. Intervals are within the normal limits. Normal axis. No ST or T-wave changes suggestive of acute ischemia. Brief History The following is taken from my (Dr. Palmer) H&P dated 08/17/16: Tomas is a 65-year-old gentleman with complicated cardiac history with history of stenting (most recently 05/24/16 [facility]), diabetes type II, hypertension, hyperlipidemia who presents to the ER at the recommendation of his elementary instructional coach for new onset left upper extremity discomfort and numbness that started on Saturday of this week. Tomas reports that Saturday earlier this week he experienced upon awakening left upper shoulder discomfort which she originally attributed to sleeping on it wrong. This discomfort spread to his left forearm is well throughout the course of the day, and he continued to consider it secondary to sleeping in an abnormal position. This continued until yesterday () at which time he suspected it may be cardiac related, and for which she took 2 separate 3 dose courses of nitroglycerin sublingually. Each dose of nitroglycerin relieved his pain temporarily. Today (Saturday) prior to calling his elementary instructional coach, and reported that he placed one of his nitroglycerin patches. He reports at this time a low level discomfort in his left upper shoulder and forearm with associated numbness in those areas. He reports minimal central chest discomfort described as a dull ache at this time. He also reports headache (this is chronic for him and unchanged), some dizziness and lightheadedness associated with standing too quickly but not while resting as he is here in the ER. He otherwise denies diaphoresis, nausea , vomiting. In the ER, vital signs are stable and labs are fairly unremarkable. ER physician discussed the case with cardiology on-call, and given the patient's complex cardiac history (especially most recently) and his persistent symptoms, decision was made to admit under observation. Patient admitted under observation status (less than to midnight stay) is on severity of presentation, comorbid conditions, and risk of complications. Hospital Course # Unstable angina in patient with complex cardiac history (see detailed history above). Present on admission Right upper extremity discomfort and numbness which is relieved with nitroglycerin, but persisting over the last several days. No elevation of troponin, EKG unremarkable. Case discussed by ER physician with cardiology on-call, and decision made to admit under observation based on the complexity of his cardiac history Heparin drip initiated Telemetry monitoring Nitroglycerin as needed for pain Cardiology consult. Patient was never seen by cardiology as he left AMA. Chronic conditions as noted below: Diabetes mellitus type II, not on insulin-normal renal function, continue metformin Hypertension, essential-continue losartan Hyperlipidemia-continue Praluent (if due for dose) QUETA on CPAP-continue CPAP at night PVD-continue management for the above chronic conditions Chronic low back pain associated with degenerative disc disease-monitor pain level, and provide conservative management (such as Tylenol) There is mention in the record of posttraumatic seizures-not on medication for this, we will monitor Patient reports history of migraines-not on medication for this, and we will provide conservative management (such as Tylenol) BPH-continue tamsulosin GERD-heart healthy/consistent carb diet. No prophylaxis necessary. Left lower lobe pulmonary nodules-need outpatient follow-up (noncontrast chest CT) Punctate calcifications of pancreas noted on previous CT consistent with chronic pancreatitis Hepatic steatosis. Left adrenal adenoma. Moderate hiatal hernia. Chronic loose stools-continue Loperamide Exam Vital Signs (Last) Date Time Temp Pulse Resp B/P Pulse Ox O2 Delivery O2 Flow Rate FiO2 08/17/16 14:54 36.4 57 18 148/81 95 Room Air 08/17/16 13:00 2 Exam Physical exam on day of discharge (same as day of admission): Patient is a well-nourished white male in no acute distress lying on the ER gurney. Pupils are equal and reactive to light, extraocular muscle movements intact, mucous membranes are moist and pink, no conjunctival injection. Sclerae are anicteric Neck is supple, nontender, without appreciable thyromegaly. Lungs are clear to auscultation bilaterally without appreciable wheezes, rhonchi , rales. Normal respiratory effort, and saturating well on room air. Heart rate and rhythm are regular (albeit somewhat bradycardic), no murmurs/rubs /gallops appreciated. No carotid bruit. Radial and posterior tibial pulses are 2+ bilaterally. Abdomen is soft, nontender. Bowel tones are present. Skin is without rash or ecchymosis. Patient has a subcutaneous nodule of approximately 2 cm x 2 cm in the right superior frontal region of scalp ( reportedly chronic). Extremities without edema/cyanosis. Grossly neurologically intact. Cranial nerves grossly intact. Normal speech. Normal mood and affect with appropriate thought content. Test 08/17/16 11:15 08/17/16 14:20 White Blood Count 6.4th/mm3 (3.8-10.1) Red Blood Count 4.73mil/mm3 (4.40-5.80) Hemoglobin 15.6g/dL (13.8-17.2) Hematocrit 45.9% (41.0-50.0) Mean Corpuscular Volume 97.0fL (81-100) Mean Corpuscular Hemoglobin 33.0pg (27.0-35.0) Mean Corpuscular Hemoglobin Concent 34.0% (32.0-37.0) Red Cell Distribution Width 12.5% (12.3-15.4) Platelet Count 271bil/L (150-400) Neutrophils (%) (Auto) 59.7% (40-74) Lymphocytes (%) (Auto) 27.9% (14-46) Monocytes (%) (Auto) 8.8% (4-12) Eosinophils (%) (Auto) 2.5% (0-5) Basophils (%) (Auto) 0.9% (0-3) Activated Partial Thromboplast Time 25.0sec (22.8-33.0) Sodium Level 139mEq/L (134-144) Potassium Level 4.4mEq/L (3.5-5.2) Chloride Level 102mEq/L (97-108) Carbon Dioxide Level 21mmol/L (18-29) Blood Urea Nitrogen 17mg/dL (8-27) Creatinine 0.90mg/dL (0.76-1.27) Estimat Glomerular Filtration Rate 89mL/min (>59) Glucose Level 144mg/dL (60-99) Calcium Level 10.0mg/dL (8.5-10.1) Magnesium Level 1.9mg/dL (1.6-2.6) Total Bilirubin 0.5mg/dL (0.0-1.2) Aspartate Amino Transf (AST/SGOT) 15U/L (0-50) Alanine Aminotransferase (ALT/SGPT) 16U/L (0-44) Alkaline Phosphatase 71U/L (25-160) Troponin T < 0.010ug/L (0.0-0.011) Total Protein 7.3g/dL (6.4-8.4) Albumin 4.4g/dL (3.4-5.0) Urine Color Straw (YELLOW) Urine Appearance Hazy (CLEAR,HAZY) Urine pH 5.5 (5.0-8.0) Urine Specific Endeavor 1.020 (1.003-1.035) Urine Protein Negativemg/dL (NEG,TRACE) Urine Glucose (UA) Negativemg/dL (NEGATIVE) Urine Ketones Negativemg/dL (NEGATIVE) Urine Occult Blood Negative (NEGATIVE) Urine Nitrite Negative (NEGATIVE) Urine Bilirubin Negative (NEGATIVE) Urine Urobilinogen Normalmg/dL (NORMAL) Urine Leukocyte Esterase Negative (NEGATIVE) Urine RBC 0-2/hpf (0-2) Urine WBC 0-5/hpf (0-5) Urine Epithelial Cells Occasional/hpf (NONE-MOD) Urine Crystals None seen (NONE SEEN) Urine Bacteria None/hpf (NONE-FEW) Urine Hyaline Casts None/lpf (NONE) Urine Granular Casts None seen (NONE SEEN) Urine Waxy Casts None seen (NONE SEEN) Urine Red Blood Cell Casts None seen (NONE SEEN) Urine White Blood Cell Casts None seen (NONE SEEN) Urine Mucus Present (None Seen) Urine Trichomonas None seen (NONE SEEN) Urine Yeast None (NONE SEEN) Urinalysis Comment None Urine Culture Reflexed Not indicated Microbiology Results None this admission. Discharge Medications Discharge Medications Alirocumab (Praluent Pen) 75 Mg/Ml Pen.injctr 75 MG SQ q14 days (Reported) Ascorbic Acid (Vitamin C) 1,000 Mg Tab.chew 1,000 MG PO DAILY (Reported) Aspirin (Aspirin) 81 Mg Tablet 81 MG PO DAILY (Reported) Clopidogrel (Clopidogrel) 75 Mg Tablet 75 MG PO DAILY Prescribed by: RUBY PAK MD Loperamide (Loperamide) 2 Mg Tablet 4 MG PO DAILY (Reported) Losartan Potassium (Losartan Potassium) 25 Mg Tablet 25 MG PO DAILY (Reported) Metformin (Glucophage) 1,000 Mg Tablet 1,000 MG PO BID (Reported) Nitroglycerin (Nitro-Dur) 1 Ea Patch 1 EA TD DAILY Prescribed by: HARESH DRAKE DO Tamsulosin (Flomax) 0.4 Mg Capsule 0.4 MG PO DAILY (Reported) As needed Nitroglycerin SL (Nitrostat) 0.4 Mg Tab.subl 0.4 MG SL Q5MIN PRN PRN For Chest Pain Prescribed by: ERIC GRANDE DO Additional med instructions Patient left AMA. Followup Plan Disposition: Patient left AMA. Time spent 30 min Attending Statement The patient was seen and examined together with Resident/House-Staff on 08/17/16 and I agree with the history, exam and plan as outlined in the note above. copies to: Janina Boyer; Gera Avila MD, Collin T DO August 17, 2016 18:43 Jorge Varner August 20, 2016 14:38
[2016-08-17] MEDS ORDERED: PT Own Med->Oral Medication PO SCH (20:30)
[2016-08-18] MEDS ORDERED: PT Own Med->Oral Medication PO SCH ×6 (08:30)
[2016-08-18] MEDS ORDERED: Pt Own Med->Topical Med TOPICAL SCH (08:30)
== END 2016-08-17 16:45 | disposition left against medical advice (07) ==
LOC: SED 10:59 → PCC 13:32
PROVIDERS: ADMIT Internal Medicine; ATTEND Internal Medicine
DX: I25.110 Atherosclerotic heart disease of native coronary artery with unstable angina pectoris (principal); E11.9 Type 2 diabetes mellitus without complications; I10 Essential (primary) hypertension; E78.5 Hyperlipidemia, unspecified; G47.33 Obstructive sleep apnea (adult) (pediatric); I73.9 Peripheral vascular disease, unspecified; M45.4 Ankylosing spondylitis of thoracic region; M51.36 Other intervertebral disc degeneration, lumbar region; G43.909 Migraine, unspecified, not intractable, without status migrainosus; N40.0 Benign prostatic hyperplasia without lower urinary tract symptoms; K21.9 Gastro-esophageal reflux disease without esophagitis; R91.8 Other nonspecific abnormal finding of lung field; K86.1 Other chronic pancreatitis; K76.0 Fatty (change of) liver, not elsewhere classified; K44.9 Diaphragmatic hernia without obstruction or gangrene; R19.7 Diarrhea, unspecified; D35.02 Benign neoplasm of left adrenal gland; G40.89 Other seizures; Z86.73 Personal history of transient ischemic attack (TIA), and cerebral infarction without residual deficits; Z87.891 Personal history of nicotine dependence; Z95.5 Presence of coronary angioplasty implant and graft; Z79.84 Long term (current) use of oral hypoglycemic drugs; Z79.82 Long term (current) use of aspirin
CPT/HCPCS: 36415; 71010; 80053; 81000; 83735; 84484; 85025; 85730; 93005; 96374; 96376; 99291; G0378; J1644